=== PATIENT | male | born 1950 | race Caucasian/White ===

== ENCOUNTER → 2018-04-15 10:17 | Outpatient (CLI) | payer MEDICARE, OTHER, SELFPAY ==
[2018-04-15 12:50] LABS: Thyroid Stimulating Hormone 1.89 uIU/mL (0.47-4.68)
[2018-04-15 15:12] LABS: Prostate Specific Antigen < 0.064 ng/mL (0.10-4.00)
[2018-04-17 19:54] LABS: PSA Post Prostatectomy <0.02 ng/mL
== END ==
PROVIDERS: PCP Family Medicine; Visit Provider Urology
DX: Z85.46 Personal history of malignant neoplasm of prostate (principal); N52.9 Male erectile dysfunction, unspecified; N39.3 Stress incontinence (female) (male); R35.1 Nocturia; Z90.79 Acquired absence of other genital organ(s); E03.9 Hypothyroidism, unspecified
CPT/HCPCS: 36415; 84153; 84443

== ENCOUNTER → 2018-04-23 10:16 | Outpatient (CLI) | payer MEDICARE, OTHER, SELFPAY ==
[2018-04-23 11:40] LABS: Cholesterol 203 mg/dL (140-199); Glucose 94 mg/dL (80-110); HDL Cholesterol 45 mg/dL (40-60); LDL Cholesterol Calculated 141 mg/dL (<100); Triglycerides 85 mg/dL (35-150)
== END ==
PROVIDERS: Family Provider Family Medicine; PCP Family Medicine; Visit Provider Family Medicine
DX: Z00.00 Encounter for general adult medical examination without abnormal findings (principal)
CPT/HCPCS: 36415; 80061; 82947

== ENCOUNTER → 2018-08-31 10:59 | Outpatient (CLI) | payer MEDICARE, OTHER, SELFPAY ==
[2018-09-02 15:04] LABS: PSA Post Prostatectomy <0.02 ng/mL
== END ==
PROVIDERS: Family Provider Family Medicine; PCP Family Medicine; Visit Provider Urology
DX: C61 Malignant neoplasm of prostate (principal)
CPT/HCPCS: 36415; 84153

== ENCOUNTER 2019-04-05 15:18 | Emergency (ER) | payer MEDICARE, OTHER, SELFPAY ==
[2019-04-05 15:27] VITALS: BP 168/83; PULSE 65; RESP 12; TEMP 36.8; O2SAT 99; BMI 27.1
--- NOTE | 2019-04-05 15:30 | DI.RAD.S_ITS ---
PROCEDURE: XR CHEST 1V INDICATIONS: chest pain TECHNIQUE: One view of the chest was acquired. COMPARISON: [facility], CR, XR CHEST 1 VIEW, 04/01/2019, 4:02. FINDINGS: Surgical changes and devices: None. Lungs and pleura: Lungs are clear. No pleural effusions or pneumothorax. Mediastinum: Mediastinal contours appear normal. Heart size is normal. Bones and chest wall: No suspicious bony lesions. Overlying soft tissues appear unremarkable. IMPRESSION: No acute cardiopulmonary disease process. Dictated by: Roya Berg MD, PhD on 04/05/2019 at 15:40 Approved by: Roya Berg MD, PhD on 04/05/2019 at 15:41
[2019-04-05] MEDS: ASPIRIN 81 MG TAB 324 MG PO (15:39)
[2019-04-05] MEDS: SODIUM CHLORIDE 0.9% 1,000 ML 150 ML IV (15:39)
[2019-04-05 15:41] LABS: Add Manual Diff / Slide Review NO; Basophils Absolute Auto 0 /uL (0-100); Basophils Percent Auto 0.3 % (0-2); Eosinophils Absolute Auto 100 /uL (0-450); Eosinophils Percent Auto 1.5 % (2-4); Hematocrit 30.6 % (41-53); Hemoglobin 10.3 g/dL (13.5-17.5); Lymphocytes Absolute Auto 2000 /uL (1100-4500); Lymphocytes Percent Auto 21.5 % (25-40); Mean Corpuscular HGB Conc 33.6 % (30-36); Mean Corpuscular Hemoglobin 30.6 PG (26-34); Monocytes Absolute Auto 900 /uL (0-900); Monocytes Percent Auto 9.6 % (3-14); Neutrophils Absolute Auto 6100 /uL (1500-7000); Neutrophils Percent Auto 67.1 % (50-75); Platelet Count 197 X10^3/uL (150-400); Red Blood Cell Count 3.36 X10^6/uL (4.5-5.9); Red Cell Distribution Width 13.5 % (11.6-14.8); White Blood Cell Count 9.2 X10^3/uL (4.5-11.0)
[2019-04-05 15:53] LABS: Alanine Aminotransferase 72 IU/L (21-72); Albumin 3.8 g/dL (3.5-5.0); Albumin Globulin Ratio 1.4 (1.0-2.8); Alkaline Phosphatase 86 U/L (38-126); Aspartate Aminotransferase 48 IU/L (17-59); Bilirubin Total 0.7 mg/dL (0.2-1.3); Blood Urea Nitrogen 24 mg/dL (9-20); Calcium 9.1 mg/dL (8.4-10.2); Carbon Dioxide 30 mmol/L (22-32); Chloride 99 mmol/L (98-107); Creatine Kinase 37 U/L (55-170); Estimated Glomerular Filt Rate > 60.0 mL/min (>60); Globulin 2.7 g/dL (1.7-4.1); Glucose 104 mg/dL (80-110); HEMOLYSIS < 15 (0-50); Lipase 286 U/L (23-300); Potassium 3.6 mmol/L (3.4-5.1); Sodium 136 mmol/L (137-145); Total Protein 6.5 g/dL (6.3-8.2)
[2019-04-05 16:30] VITALS: BP 168/76; PULSE 61; RESP 12; O2SAT 99
--- NOTE | 2019-04-05 16:35 | ED.CHESTPAIN ---
HPI - Chest Pain General Chief Complaint: Chest Pain Stated Complaint: CHEST DISCOMFORT - RECENT UT Time Seen by Provider: 04/05/19 15:38 Source: patient Mode of arrival: ambulatory Limitations: no limitations History of Present Illness HPI narrative: Patient presents emergency department complaining of an episode of chest tightness and pressure today this started in the wee hours of the morning. He states that he did not have any associated symptoms--no shortness of breath, nausea, diaphoresis, or dizziness. The patient just had a STEMI 4 days ago, for which he was seen at [facility], and his right coronary artery was stented. 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 Patient states that his timber sizer, Dr. Puentes, stated that he felt that the left coronary artery stenosis had been there for quite some time, and that he did not feel it needed to be stented emergently. Patient states he was discharged 2 days ago, and has been doing fine, but is also on new medications and is not sure what to expect as far is symptoms. He states that his pain is completely gone now. Patient states that the discomfort that he had today felt much like his indigestion, but that he was concerned because the evening before his STEMI, he had the same kind of indigestion symptoms. He states they felt just like the same indigestion that he has had for years, but that this progressed into a much more severe pain along with diaphoresis. Patient states that none of this happened today. He states he has an appointment at the cardiology clinic tomorrow. Related Data Home Medications Medication Instructions Recorded Confirmed aspirin 81 mg PO DAILY 04/05/19 04/05/19 atorvastatin 40 mg PO QPM 04/05/19 04/05/19 clopidogrel 75 mg PO DAILY 04/05/19 04/05/19 losartan 100 mg PO DAILY 04/05/19 04/05/19 metoprolol tartrate 12.5 mg PO BID 04/05/19 04/05/19 Allergies Allergy/AdvReac Type Severity Reaction Status Date / Time shellfish derived Allergy Unknown Unverified 02/24/18 12:15 [SHELLFISH DERIVED] Review of Systems Constitutional Denies chills, Denies fever(s), Denies lethargy and Denies weakness Eyes Denies change in vision, Denies eye discharge, Denies irritation and Denies loss of vision ENT Ears, Nose, Mouth, and Throat: Denies change in voice, Denies neck pain and Denies sore throat Cardiovascular Reports chest pain, Denies irregular heart rhythm, Denies lightheadedness, Denies palpitations, Denies dyspnea, Denies dyspnea on exertion and Denies orthopnea Respiratory Denies cough, Denies dyspnea, Denies dyspnea on exertion and Denies wheezing Gastrointestinal Gastrointestinal: Denies abdominal pain, Denies change in bowel habits, Denies diarrhea, Denies nausea and Denies vomiting Genitourinary Denies hematuria, Denies flank pain, Denies urinary incontinence and Denies urinary urgency Musculoskeletal Denies neck pain Integumentary/Breasts Denies pruritus, Denies erythema, Denies rash and Denies wounds Neurologic Denies confusion, Denies loss of vision and Denies weakness Psychiatric Denies anxiety, Denies confusion, Denies depression, Denies homicidal ideation and Denies suicidal ideation Endocrine Denies palpitations Hematologic/Lymphatic Denies easy bruising Allergic/Immunologic Denies wheezing [facility] Medical History (Updated 04/05/19 @ 16:50 by Debbie Baum MD) STEMI (ST elevation myocardial infarction) (Resolved) Surgical History (Updated 04/05/19 @ 16:50 by Debbie Baum MD) H/O angioplasty (Acute) Family History Father Age: 93 Heart disease High cholesterol Mental health problem Stroke Mother Age: 90 Heart disease Hypertension High cholesterol Social History Smoking Status: Never smoker Family History Father Age: 93 Heart disease High cholesterol Mental health problem Stroke Mother Age: 90 Heart disease Hypertension High cholesterol Social History Smoking Status: Never smoker Exam Initial Vital Signs Initial Vital Signs: Vital Signs Temperature 98.3 F 04/05/19 15:27 Pulse Rate 65 04/05/19 15:27 Respiratory Rate 12 04/05/19 15:27 Blood Pressure 168/83 H 04/05/19 15:27 Pulse Oximetry 99 04/05/19 15:27 Const General: cooperative and well developed Nutritional Appearance: well nourished Orientation: alert, awake, oriented x3 and not confused [facility] Head: normocephalic and atraumatic Ears: TM's normal bilaterally Nose: external nose normal and No nasal discharge Face and sinus: face symmetric and No dry mucous membranes Mouth: oral mucosae normal and moist mucous membranes Teeth and gingiva: dentition normal Eyes General: appearance normal, both eyes and all related structures Eyelids: eyelids normal Conjunctivae: conjunctivae normal Sclera: sclerae normal Pupils: PERRL EOM: EOM intact bilaterally Neck Neck: normal visual inspection, trachea midline, No lymphadenopathy, No midline deformity and No JVD Lymphatic: No lymphedema Chest Chest: normal inspection of the chest Resp Effort & Inspection: normal respiratory effort, able to speak in complete sentences, no respiratory distress and no use of accessory muscles Auscultation: clear to auscultation bilaterally, no rales, no rhonchi and no wheezes Cardio Rate: regular rate Rhythm: regular rhythm Heart Sounds: no click, no gallops, no murmurs and no rubs Pulses: normal peripheral pulses GI Inspection: non-distended Palpation: soft, no hepatosplenomegaly, No guarding, No pulsatile mass and No tender Auscultation: normal bowel sounds Back/Spine/Pelvis Back: No CVA tenderness Cervical Spine: cervical ROM normal and No pain with cervical ROM Thoracic/Lumbar Spine: thoracic and lumbar spine normal to inspection Skin General: no rashes or lesions noted, No jaundice and No petechiae Neuro General: alert, oriented x3, gait normal and no focal motor deficits Speech: speech normal Extrem General: full ROM, no clubbing, cyanosis or edema, no pedal edema and no calf tenderness Other: Patient has extensive contusion with old hematoma over his right inguinal area, with dependent spread. No pulsatile mass or fluctuance is noted. No oozing from the catheter insertion site. Psych Appearance: well kempt Mental Status: mental status grossly normal Attitude: cooperative Thought Content: normal and suicidality Judgment: judgment good Course Course Narrative: Patient was worked up with labs and EKG, and initial workup was negative. Patient was chest pain-free at the time of his presentation to the emergency department. I reviewed the patient's records from [facility] and discussed the case with Dr. Dickey, who was on-call for Cardiology. He stated that he did not feel the patient should be sent home, but transferred to [facility] and have a repeat catheterization tomorrow morning. We did call scheduled to set up a bed for the patient, but they stated that they were full, and boarding multiple patients in the emergency department, and could not accept the patient in transfer. At this point, I did call [facility] in [place] and spoke with Dr. Stoll, who was on hospitalist duty. He stated that he would be happy to accept the patient, but requested that I speak with Dr. Kirk, the timber sizer, first. I did speak with Dr. Kirk, who, after a discussion of the circumstances surrounding the request for transfer, did agree to have the patient transferred to their hospitalist service at [facility], and stated that one of the cardiologists could see the patient tomorrow. I discussed all this with the patient and his , who were agreeable to the plan. Repeat troponin is pending at this time. The patient has remained chest pain free throughout his stay in the emergency department. Orders Ordered: ED Orders 04/05/19 15:30 XR chest 1V Stat EKG-12 Lead Stat 04/05/19 15:35 Complete Blood Count AUTO DIFF Stat Comprehensive Metabolic Panel Stat Lipase Stat Troponin & CK Cardiac Panel Stat 04/05/19 20:05 Troponin & CK Cardiac Panel Stat Sodium Chloride (Normal Saline 0.9%) 1,000 mls @ 150 mls/hr IV CONT KERVIN Last Admin: 04/05/19 15:39 Dose: 150 mls/hr Discontinued Medications Aspirin (Aspirin Chew) 324 mg PO NOW ONE Stop: 04/05/19 15:31 Last Admin: 04/05/19 15:39 Dose: 243 mg Vital Signs - 8 hr 04/05/19 15:27 04/05/19 16:30 04/05/19 17:00 Temperature 98.3 F Pulse Rate 65 61 56 L Respiratory Rate 12 12 12 Blood Pressure 168/83 H Blood Pressure [Right Arm] 168/76 H 134/78 Pulse Oximetry 99 99 98 04/05/19 18:00 04/05/19 19:36 Temperature Pulse Rate 59 L 56 L Respiratory Rate 17 15 Blood Pressure Blood Pressure [Right Arm] 141/74 H 142/92 H Pulse Oximetry 99 98 MDM - Chest Pain Medical Records Data Attestation: I reviewed the patient's medical records. Lab Data Attestation: I reviewed the patient's lab results. Result diagrams: 04/05/19 15:35 04/05/19 15:35 Lab Results 04/05/19 04/05/19 Range/Units 15:35 15:35 WBC 9.2 (4.5-11.0) X10^3/uL RBC 3.36 L (4.5-5.9) X10^6/uL Hgb 10.3 L (13.5-17.5) g/dL Hct 30.6 L (41-53) % MCV 91.0 (80-100) fL MCH 30.6 (26-34) PG MCHC 33.6 (30-36) % RDW 13.5 (11.6-14.8) % Plt Count 197 (150-400) X10^3/uL Neut % (Auto) 67.1 (50-75) % Lymph % (Auto) 21.5 L (25-40) % [place] % (Auto) 9.6 (3-14) % Eos % (Auto) 1.5 L (2-4) % Baso % (Auto) 0.3 (0-2) % Neut # (Auto) 6100 (6724-6284) /uL Lymph # (Auto) 2000 (6512-0185) /uL [place] # (Auto) 900 (0-900) /uL Eos # (Auto) 100 (0-450) /uL Baso # (Auto) 0 (0-100) /uL Sodium 136 L (137-145) mmol/L Potassium 3.6 (3.4-5.1) mmol/L Chloride 99 (98-107) mmol/L Carbon Dioxide 30 (22-32) mmol/L BUN 24 H (9-20) mg/dL Creatinine 1.00 (0.66-1.25) mg/dL Estimated GFR > 60.0 (>60) mL/min BUN/Creatinine Ratio 24.0 H (6-22) Glucose 104 (80-110) mg/dL Calcium 9.1 (8.4-10.2) mg/dL Total Bilirubin 0.7 (0.2-1.3) mg/dL AST 48 (17-59) IU/L ALT 72 (21-72) IU/L Alkaline Phosphatase 86 (38-126) U/L Total Creatine Kinase 37 L (55-170) U/L CK-MB (CK-2) TNP CK-MB (CK-2) Rel Index TNP Troponin I 5.150 H* (0.01-0.034) ng/mL Total Protein 6.5 (6.3-8.2) g/dL Albumin 3.8 (3.5-5.0) g/dL Globulin 2.7 (1.7-4.1) g/dL Albumin/Globulin Ratio 1.4 (1.0-2.8) Lipase 286 (23-300) U/L Imaging Data Chest x-ray: Radiologist's impression: [address] [address] XRay Report Signed Patient: Flaco Brown FMR#: [id number] : 1950Acct:[id number] Age/Sex: 68 / MDate of Service: 04/05/19 Loc: ED Accession Number: [id number] Procedure: XR chest 1V Ordering Provider: Debbie Baum MD PROCEDURE: XR CHEST 1V INDICATIONS: chest pain TECHNIQUE: One view of the chest was acquired. COMPARISON: [facility], , XR CHEST 1 VIEW, 04/01/2019, 4:02. FINDINGS: Surgical changes and devices: None. Lungs and pleura: Lungs are clear. No pleural effusions or pneumothorax. Mediastinum: Mediastinal contours appear normal. Heart size is normal. Bones and chest wall: No suspicious bony lesions. Overlying soft tissues appear unremarkable. IMPRESSION: No acute cardiopulmonary disease process. Dictated by: Roya Berg MD, PhD on 04/05/2019 at 15:40 Approved by: Roya Berg MD, PhD on 04/05/2019 at 15:41 ECG Data Attestation: I personally reviewed and interpreted this ECG as follows: (See below) Interpretation: Twelve lead EKG performed April 05, 2019 at 3:24 p.m., as follows: Regular ventricular rhythm with a rate of 63 beats per minute [place] interval 161 milliseconds QRS duration 102 millisecond QTC interval 414 millisecond Normal axis Inverted T-waves in leads 3 and AVF Q-waves present in leads 2, 3 and AVF Interpretation: Normal sinus rhythm; no STEMI; inferior myocardial infarction of indeterminate age; abnormal EKG is interpreted by ED MD. Discharge Plan Departure Prescriptions: No Action atorvastatin 40 mg Tablet 40 mg PO QPM RF: 0 clopidogrel 75 mg Tablet 75 mg PO DAILY RF: 0 aspirin 81 mg Tablet,Delayed Release (Dr/Ec) 81 mg PO DAILY RF: 0 losartan 100 mg Tablet 100 mg PO DAILY RF: 0 metoprolol tartrate 25 mg Tablet 12.5 mg PO BID RF: 0
--- NOTE | 2019-04-05 16:42 | ED_ITS ---
HPI - Chest Pain General Chief Complaint: Chest Pain Stated Complaint: CHEST DISCOMFORT - RECENT [place] Time Seen by Provider: 04/05/19 15:38 Source: patient Mode of arrival: ambulatory Limitations: no limitations History of Present Illness HPI narrative: Patient presents emergency department complaining of an episode o f chest tightness and pressure today this started in the wee hours of the morning. He states that he did not have any associated symptoms--no shortness of breath, nausea, diaphoresis, or dizziness. The patient just had a STEMI 4 days ago, for which he was seen at [facility], and his right coronary artery was stented. 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 Patient states that his airport maintenance laborer, Dr. Puentes, stated that he felt that the left coronary artery stenosis had been there for quite some time, and that he did not feel it needed to be stented emergently. Patient states he was discharged 2 days ago, and has been doing fine, but is also on new medications and is not sure what to expect as far is symptoms. He states that his pain is completely gone now. Patient states that the discomfort that he had today felt much like his indigestion, but that he was concerned because the evening before his STEMI, he had the same kind of indigestion symptoms. He states they felt just like the same indigestion that he has had for years, but that this progressed into a much more severe pain along with diaphoresis. Patient states that none of this happened today. He states he has an appointment at the cardiology clinic tomorrow. Related Data Home Medications Medication Instructions Recorded Confirmed aspirin 81 mg PO DAILY 04/05/19 04/05/19 atorvastatin 40 mg PO QPM 04/05/19 04/05/19 clopidogrel 75 mg PO DAILY 04/05/19 04/05/19 losartan 100 mg PO DAILY 04/05/19 04/05/19 metoprolol tartrate 12.5 mg PO BID 04/05/19 04/05/19 Allergies Allergy/AdvReac Type Severity Reaction Status Date / Time shellfish derived Allergy Unknown Unverified 02/24/18 12:15 [SHELLFISH DERIVED] Review of Systems Constitutional Denies chills, Denies fever(s), Denies lethargy and Denies weakness Eyes Denies change in vision, Denies eye discharge, Denies irritation and Denies loss of vision ENT Ears, Nose, Mouth, and Throat: Denies change in voice, Denies neck pain and Denies sore throat Cardiovascular Reports chest pain, Denies irregular heart rhythm, Denies lightheadedness, Denies palpitations, Denies dyspnea, Denies dyspnea on exertion and Denies orthopnea Respiratory Denies cough, Denies dyspnea, Denies dyspnea on exertion and Denies wheezing Gastrointestinal Gastrointestinal: Denies abdominal pain, Denies change in bowel habits, Denies diarrhea, Denies nausea and Denies vomiting Genitourinary Denies hematuria, Denies flank pain, Denies urinary incontinence and Denies urinary urgency Musculoskeletal Denies neck pain Integumentary/Breasts Denies pruritus, Denies erythema, Denies rash and Denies wounds Neurologic Denies confusion, Denies loss of vision and Denies weakness Psychiatric Denies anxiety, Denies confusion, Denies depression, Denies homicidal ideation and Denies suicidal ideation Endocrine Denies palpitations Hematologic/Lymphatic Denies easy bruising Allergic/Immunologic Denies wheezing [facility] Medical History (Updated 04/05/19 @ 16:50 by Debbie Baum MD) STEMI (ST elevation myocardial infarction) (Resolved) Surgical History (Updated 04/05/19 @ 16:50 by Debbie Baum MD) H/O angioplasty (Acute) Family History Father Age: 93 Heart disease High cholesterol Mental health problem Stroke Mother Age: 90 Heart disease Hypertension High cholesterol Social History Smoking Status: Never smoker Family History Father Age: 93 Heart disease High cholesterol Mental health problem Stroke Mother Age: 90 Heart disease Hypertension High cholesterol Social History Smoking Status: Never smoker Exam Initial Vital Signs Initial Vital Signs: Vital Signs Temperature 98.3 F 04/05/19 15:27 Pulse Rate 65 04/05/19 15:27 Respiratory Rate 12 04/05/19 15:27 Blood Pressure 168/83 H 04/05/19 15:27 Pulse Oximetry 99 04/05/19 15:27 Const General: cooperative and well developed Nutritional Appearance: well nourished Orientation: alert, awake, oriented x3 and not confused [facility] Head: normocephalic and atraumatic Ears: TM's normal bilaterally Nose: external nose normal and No nasal discharge Face and sinus: face symmetric and No dry mucous membranes Mouth: oral mucosae normal and moist mucous membranes Teeth and gingiva: dentition normal Eyes General: appearance normal, both eyes and all related structures Eyelids: eyelids normal Conjunctivae: conjunctivae normal Sclera: sclerae normal Pupils: PERRL EOM: EOM intact bilaterally Neck Neck: normal visual inspection, trachea midline, No lymphadenopathy, No midline deformity and No JVD Lymphatic: No lymphedema Chest Chest: normal inspection of the chest Resp Effort & Inspection: normal respiratory effort, able to speak in complete sentences, no respiratory distress and no use of accessory muscles Auscultation: clear to auscultation bilaterally, no rales, no rhonchi and no wheezes Cardio Rate: regular rate Rhythm: regular rhythm Heart Sounds: no click, no gallops, no murmurs and no rubs Pulses: normal peripheral pulses GI Inspection: non-distended Palpation: soft, no hepatosplenomegaly, No guarding, No pulsatile mass and No tender Auscultation: normal bowel sounds Back/Spine/Pelvis Back: No CVA tenderness Cervical Spine: cervical ROM normal and No pain with cervical ROM Thoracic/Lumbar Spine: thoracic and lumbar spine normal to inspection Skin General: no rashes or lesions noted, No jaundice and No petechiae Neuro General: alert, oriented x3, gait normal and no focal motor deficits Speech: speech normal Extrem General: full ROM, no clubbing, cyanosis or edema, no pedal edema and no calf tenderness Other: Patient has extensive contusion with old hematoma over his right inguinal area, with dependent spread. No pulsatile mass or fluctuance is noted. No oozing from the catheter insertion site. Psych Appearance: well kempt Mental Status: mental status grossly normal Attitude: cooperative Thought Content: normal and suicidality Judgment: judgment good Course Course Narrative: Patient was worked up with labs and EKG, and initial workup was negative. Patient was chest pain-free at the time of his presentation to the emergency department. I reviewed the patient's records from [facility] and disc ussed the case with Dr. Dickey, who was on-call for Cardiology. He stated that he did not feel the patient should be sent home, but transferred to [facility] and have a repeat catheterization tomorrow morning. We did call scheduled to set up a bed for the patient, but they stated that they were full, and boarding multiple patients in the emergency department, and could not accept the patient in transfer. At this point, I did call [facility] in [place] and spoke with Dr. Stoll, who was on hospitalist duty. He stated that he would be happy to accept the patient, but requested that I speak with Dr. Kirk, the airport maintenance laborer, first. I did speak with Dr. Kirk, who, after a discussion of the circumstances surrounding the request for transfer, did agree to have the patient transferred to their hospitalist service at [facility], and stated that one of the cardiologists could see the patient tomorrow. I discussed all this with the patient and his , who were agreeable to the plan. Repeat troponin is pending at this time. The patient has remained chest pain free throughout his stay in the emergency department. Orders Ordered: ED Orders 04/05/19 15:30 XR chest 1V Stat EKG-12 Lead Stat 04/05/19 15:35 Complete Blood Count AUTO DIFF Stat Comprehensive Metabolic Panel Stat Lipase Stat Troponin & CK Cardiac Panel Stat 04/05/19 20:05 Troponin & CK Cardiac Panel Stat Sodium Chloride (Normal Saline 0.9%) 1,000 mls @ 150 mls/hr IV CONT KERVIN Last Admin: 04/05/19 15:39 Dose: 150 mls/hr Discontinued Medications Aspirin (Aspirin Chew) 324 mg PO NOW ONE Stop: 04/05/19 15:31 Last Admin: 04/05/19 15:39 Dose: 243 mg Vital Signs - 8 hr 04/05/19 15:27 04/05/19 16:30 04/05/19 17:00 Temperature 98.3 F Pulse Rate 65 61 56 L Respiratory Rate 12 12 12 Blood Pressure 168/83 H Blood Pressure [Right Arm] 168/76 H 134/78 Pulse Oximetry 99 99 98 04/05/19 18:00 04/05/19 19:36 Temperature Pulse Rate 59 L 56 L Respiratory Rate 17 15 Blood Pressure Blood Pressure [Right Arm] 141/74 H 142/92 H Pulse Oximetry 99 98 MDM - Chest Pain Medical Records Data Attestation: I reviewed the patient's medical records. Lab Data Attestation: I reviewed the patient's lab results. Result diagrams: 04/05/19 15:35 04/05/19 15:35 Lab Results 04/05/19 04/05/19 Range/Units 15:35 15:35 WBC 9.2 (4.5-11.0) X10^3/uL RBC 3.36 L (4.5-5.9) X10^6/uL Hgb 10.3 L (13.5-17.5) g/dL Hct 30.6 L (41-53) % MCV 91.0 (80-100) fL MCH 30.6 (26-34) PG MCHC 33.6 (30-36) % RDW 13.5 (11.6-14.8) % Plt Count 197 (150-400) X10^3/uL Neut % (Auto) 67.1 (50-75) % Lymph % (Auto) 21.5 L (25-40) % Villalba % (Auto) 9.6 (3-14) % Eos % (Auto) 1.5 L (2-4) % Baso % (Auto) 0.3 (0-2) % Neut # (Auto) 6100 (4017-1714) /uL Lymph # (Auto) 2000 (9764-2455) /uL Villalba # (Auto) 900 (0-900) /uL Eos # (Auto) 100 (0-450) /uL Baso # (Auto) 0 (0-100) /uL Sodium 136 L (137-145) mmol/L Potassium 3.6 (3.4-5.1) mmol/L Chloride 99 (98-107) mmol/L Carbon Dioxide 30 (22-32) mmol/L BUN 24 H (9-20) mg/dL Creatinine 1.00 (0.66-1.25) mg/dL Estimated GFR > 60.0 (>60) mL/min BUN/Creatinine Ratio 24.0 H (6-22) Glucose 104 (80-110) mg/dL Calcium 9.1 (8.4-10.2) mg/dL Total Bilirubin 0.7 (0.2-1.3) mg/dL AST 48 (17-59) IU/L ALT 72 (21-72) IU/L Alkaline Phosphatase 86 (38-126) U/L Total Creatine Kinase 37 L (55-170) U/L CK-MB (CK-2) TNP CK-MB (CK-2) Rel Index TNP Troponin I 5.150 H* (0.01-0.034) ng/mL Total Protein 6.5 (6.3-8.2) g/dL Albumin 3.8 (3.5-5.0) g/dL Globulin 2.7 (1.7-4.1) g/dL Albumin/Globulin Ratio 1.4 (1.0-2.8) Lipase 286 (23-300) U/L Imaging Data Chest x-ray: Radiologist's impression: [address] [address] XRay Report Signed Patient: Flaco Brown FMR#: [id number] : 1950Acct:[id number] Age/Sex: 68 / MDate of Service: 04/05/19 Loc: ED Accession Number: [id number] Procedure: XR chest 1V Ordering Provider: Debbie Baum MD PROCEDURE: XR CHEST 1V INDICATIONS: chest pain TECHNIQUE: One view of the chest was acquired. COMPARISON: [facility], , XR CHEST 1 VIEW, 04/01/2019, 4:02. FINDINGS: Surgical changes and devices: None. Lungs and pleura: Lungs are clear. No pleural effusions or pneumothorax. Mediastinum: Mediastinal contours appear normal. Heart size is normal. Bones and chest wall: No suspicious bony lesions. Overlying soft tissues appear unremarkable. IMPRESSION: No acute cardiopulmonary disease process. Dictated by: Roya Berg MD, PhD on 04/05/2019 at 15:40 Approved by: Roya Berg MD, PhD on 04/05/2019 at 15:41 ECG Data Attestation: I personally reviewed and interpreted this ECG as follows: (See below) Interpretation: Twelve lead EKG performed April 05, 2019 at 3:24 p.m., as follows: Regular ventricular rhythm with a rate of 63 beats per minute AR interval 161 milliseconds QRS duration 102 millisecond QTC interval 414 millisecond Normal axis Inverted T-waves in leads 3 and AVF Q-waves present in leads 2, 3 and AVF Interpretation: Normal sinus rhythm; no STEMI; inferior myocardial infarction of indeterminate age; abnormal EKG is interpreted by ED MD. Discharge Plan Departure Prescriptions: No Action atorvastatin 40 mg Tablet 40 mg PO QPM RF: 0 clopidogrel 75 mg Tablet 75 mg PO DAILY RF: 0 aspirin 81 mg Tablet,Delayed Release (Dr/Ec) 81 mg PO DAILY RF: 0 losartan 100 mg Tablet 100 mg PO DAILY RF: 0 metoprolol tartrate 25 mg Tablet 12.5 mg PO BID RF: 0
[2019-04-05 17:00] VITALS: BP 134/78; PULSE 56; RESP 12; O2SAT 98
[2019-04-05 18:00] VITALS: BP 141/74; PULSE 59; RESP 17; O2SAT 99
[2019-04-05 19:36] VITALS: BP 142/92; PULSE 56; RESP 15; O2SAT 98
[2019-04-05 20:23] LABS: Creatine Kinase 34 U/L (55-170)
== END 2019-04-05 21:23 | disposition short-term general hospital (02) ==
PROVIDERS: Emergency Provider Emergency Medicine; Family Provider Family Medicine; PCP Family Medicine
DX: R07.89 Other chest pain (principal); Z98.62 Peripheral vascular angioplasty status; Z95.818 Presence of other cardiac implants and grafts
CPT/HCPCS: 36415; 36591; 71045; 80053; 82550; 83690; 84484; 85025; 93005; 93010; 96360; 96361; 99283; 99285

== ENCOUNTER → 2019-05-02 09:41 | Outpatient (CLI) | payer MEDICARE, OTHER, SELFPAY ==
[2019-05-02 11:14] LABS: BUN Creatinine Ratio 24.4 (6-22); Blood Urea Nitrogen 22 mg/dL (9-20); Calcium 8.9 mg/dL (8.4-10.2); Carbon Dioxide 31 mmol/L (22-32); Chloride 103 mmol/L (98-107); Estimated Glomerular Filt Rate > 60.0 mL/min (>60); Glucose 88 mg/dL (80-110); HEMOLYSIS < 15 (0-50); Sodium 141 mmol/L (137-145)
== END ==
PROVIDERS: Family Provider Family Medicine; PCP Family Medicine; Visit Provider Nurse Practitioner
DX: I10 Essential (primary) hypertension (principal)
CPT/HCPCS: 36415; 80048

== ENCOUNTER → 2019-05-05 07:11 | Outpatient (CLI) | payer MEDICARE, OTHER, SELFPAY ==
--- NOTE | 2019-05-05 07:14 | DI.US.S_ITS ---
PROCEDURE: US ABDOMEN COMPLETE INDICATIONS: UNSPECIFIED ABDOMINAL PAIN TECHNIQUE: Real-time scanning was performed of the abdominal and retroperitoneal organs, with image documentation. COMPARISON: None. FINDINGS: Liver: Liver is normal in size and homogeneous in echotexture. Gallbladder: There is no cholelithiasis or evidence of gallbladder wall inflammation. Biliary ducts: Intrahepatic bile ducts are non-dilated. Extrahepatic bile duct caliber measures 6 mm. Normal is 6-7 mm or less in diameter, or 10 mm or less post-cholecystectomy. Pancreas: Obscured by bowel gas. Spleen: Spleen is normal in size and homogeneous in echotexture. Kidneys: Kidneys are normal in size and echotexture. Right kidney measures 11.9 cm long; left kidney measures 11.5 cm long. No hydronephrosis or shadowing nephrolithiasis. No solid masses. A simple superior left renal cyst is present measuring up to 1.2 cm. Aorta: Visualized aorta is normal in caliber at less than 3 cm. Iliacs: Proximal common iliac arteries are normal in caliber at less than 2.5 cm. IVC: Intrahepatic inferior vena cava is patent. Miscellaneous: No free abdominal fluid. IMPRESSION: 1. No cholelithiasis or evidence of acute cholecystitis. 2. No definite nephrolithiasis or hydronephrosis. Dictated by: Blayne Jaime M.D. on 05/05/2019 at 9:01 Approved by: Blayne Jaime M.D. on 05/05/2019 at 9:02
[2019-05-05 08:22] LABS: Amylase 111 U/L (30-110); Lipase 357 U/L (23-300)
== END ==
PROVIDERS: Family Provider Family Medicine; PCP Family Medicine; Visit Provider Internal Medicine
DX: R10.9 Unspecified abdominal pain (principal); N28.1 Cyst of kidney, acquired
CPT/HCPCS: 36415; 76700; 82150; 83690

== ENCOUNTER → 2019-05-11 10:03 | Outpatient (CLI) | payer MEDICARE, OTHER, SELFPAY ==
--- NOTE | 2019-05-11 | DI.CT.S_ITS ---
PROCEDURE: CT ABDOMEN WO/W CON INDICATIONS: Acute pancreatitis without necrosis or infection, TECHNIQUE: Noncontrast 3 mm thick sections acquired through the pancreas. After the administration of intravenous contrast, 3 mm thick pancreatic-phase images acquired from the diaphragm to the iliac crests. 3 mm thick coronal and sagittal reformats were performed. For radiation dose reduction, the following was used: automated exposure control, adjustment of mA and/or kV according to patient size. COMPARISON: None. FINDINGS: Image quality: Excellent. Lung bases: Lung bases are clear. Heart size is normal. There is a small pericardial effusion. Pancreas: The pancreas is normal size, normal and uniform in enhancement, and there is no peripancreatic inflammatory changes. The pancreatic duct is nondilated. No calcifications on precontrast imaging. Other solid organs: Liver is normal in size and enhancement. Gallbladder appears normal. Biliary system is non dilated. Spleen is normal in size and enhancement. No adrenal nodules. Kidneys are normal in size and enhancement, without hydronephrosis. There are a few cortical cysts present in each kidney. Peritoneum and bowel: Unenhanced bowel loops demonstrate normal wall thickness and caliber. No free fluid or air. Nodes and vessels: No retroperitoneal or mesenteric adenopathy by size criteria. Aorta and inferior vena cava are normal in size. Bones: No suspicious bony lesions. No vertebral body compression fractures. Miscellaneous: No ventral hernias. IMPRESSION: 1. Normal CT appearance of the pancreas. Correlation with lipase and amylase is recommended as a very mild pancreatitis may be occult by CT. 2. Small bilateral renal cysts. 3. Small pericardial effusion. Dictated by: Jamila Garcia M.D. on 05/11/2019 at 15:38 Approved by: Jamila Garcia M.D. on 05/11/2019 at 15:45
== END ==
PROVIDERS: Family Provider Family Medicine; PCP Family Medicine; Visit Provider Internal Medicine
DX: K85.90 Acute pancreatitis without necrosis or infection, unspecified (principal); N28.1 Cyst of kidney, acquired; I31.3 Pericardial effusion (noninflammatory)
CPT/HCPCS: 74170; Q9967

== ENCOUNTER 2019-08-11 08:30 | Outpatient (RCR) | payer MEDICARE, OTHER, SELFPAY | END 2019-08-12 11:26 | LOC: CAR 08:30 | PROVIDERS: Family Provider Family Medicine; PCP Family Medicine; Visit Provider Family Medicine | DX: Z95.5 Presence of coronary angioplasty implant and graft (principal) | CPT/HCPCS: 93798 ==

== ENCOUNTER → 2019-09-20 09:23 | Outpatient (CLI) | payer MEDICARE, OTHER, SELFPAY ==
[2019-09-20 11:38] LABS: Prostate Specific Antigen < 0.064 ng/mL (0.10-4.00)
== END ==
PROVIDERS: PCP Internal Medicine; Visit Provider Urology
DX: Z85.46 Personal history of malignant neoplasm of prostate (principal); Z90.79 Acquired absence of other genital organ(s)
CPT/HCPCS: 36415; 84153

== ENCOUNTER → 2020-03-30 10:12 | Outpatient (CLI) | payer MEDICARE, OTHER, SELFPAY ==
[2020-03-30 11:21] LABS: BUN Creatinine Ratio 21.9 (6-22); Blood Urea Nitrogen 21 mg/dL (9-20); Calcium 9.4 mg/dL (8.4-10.2); Carbon Dioxide 29 mmol/L (22-32); Chloride 101 mmol/L (98-107); Estimated Glomerular Filt Rate > 60.0 mL/min (>60); Glucose 113 mg/dL (80-110); HEMOLYSIS < 15 (0-50); Potassium 3.9 mmol/L (3.4-5.1); Sodium 138 mmol/L (137-145)
== END ==
PROVIDERS: PCP Internal Medicine; Referring Provider Internal Medicine; Visit Provider Internal Medicine
DX: I10 Essential (primary) hypertension (principal)
CPT/HCPCS: 36415; 80048

== ENCOUNTER → 2020-04-19 07:57 | Outpatient (CLI) | payer MEDICARE, OTHER, SELFPAY ==
[2020-04-19 08:47] LABS: Hemoglobin A1C% w Est Avg Glu 5.1 % (4.0-6.0)
[2020-04-19 08:53] LABS: Cholesterol 125 mg/dL (140-199); HDL Cholesterol 51 mg/dL (40-60); LDL Cholesterol Calculated 62 mg/dL (<100); Triglycerides 62 mg/dL (35-150)
== END ==
PROVIDERS: PCP Internal Medicine; Referring Provider Internal Medicine; Visit Provider Internal Medicine
DX: R73.09 Other abnormal glucose (principal); E78.5 Hyperlipidemia, unspecified
CPT/HCPCS: 36415; 80061; 83036

== ENCOUNTER → 2020-12-18 09:04 | Outpatient (CLI) | payer MEDICARE, OTHER, SELFPAY ==
[2020-12-18 10:36] LABS: Alanine Aminotransferase 27 IU/L (<50); Albumin 3.9 g/dL (3.5-5.0); Albumin Globulin Ratio 1.5 (1.0-2.8); Alkaline Phosphatase 73 U/L (38-126); Aspartate Aminotransferase 24 IU/L (17-59); BUN Creatinine Ratio 20.9 (6-22); Bilirubin Total 0.5 mg/dL (0.2-1.3); Blood Urea Nitrogen 23 mg/dL (9-20); Calcium 8.8 mg/dL (8.4-10.2); Carbon Dioxide 31 mmol/L (22-32); Chloride 104 mmol/L (98-107); Cholesterol 111 mg/dL (140-199); Estimated Glomerular Filt Rate > 60.0 mL/min (>60); Globulin 2.6 g/dL (1.7-4.1); Glucose 94 mg/dL (80-110); HDL Cholesterol 45 mg/dL (40-60); HEMOLYSIS < 15 (0-50); LDL Cholesterol Calculated 51 mg/dL (<100); Potassium 3.3 mmol/L (3.4-5.1); Sodium 138 mmol/L (137-145); Total Protein 6.5 g/dL (6.3-8.2); Triglycerides 77 mg/dL (35-150)
[2020-12-18 11:07] LABS: Prostate Specific Antigen < 0.064 ng/mL (0.10-4.00)
[2020-12-18 11:10] LABS: TSH w/ Reflex to FT4 3.41 uIU/mL (0.47-4.68)
== END ==
PROVIDERS: PCP Family Medicine; Referring Provider Urology; Visit Provider Urology
DX: E03.9 Hypothyroidism, unspecified (principal); Z85.46 Personal history of malignant neoplasm of prostate; I10 Essential (primary) hypertension; N18.2 Chronic kidney disease, stage 2 (mild); E78.5 Hyperlipidemia, unspecified
CPT/HCPCS: 36415; 80053; 80061; 84153; 84443

== ENCOUNTER → 2021-01-14 12:24 | Outpatient (CLI) | payer MEDICARE, OTHER, SELFPAY ==
--- NOTE | 2021-01-14 | DI.US.S_ITS ---
PROCEDURE: US SCROTUM INDICATIONS: Scrotal pain. Right testicle palpable abnormality although not reproducible at the time of the examination. TECHNIQUE: Real-time scanning was performed of the scrotum and testicles, with image documentation. Color and pulse Doppler interrogation was performed of both testicles. COMPARISON: None. FINDINGS: Right: Testicle is normal in size at 5.1 x 2.7 x 3.7 cm, and homogenous in echotexture. Epididymis is normal in overall size and morphology. No hydrocele or varicoceles. Overlying scrotal skin is normal in thickness. Left: Testicle is normal in size at 4.5 x 2.7 x 2.9 cm, and homogeneous in echotexture. Epididymis is normal in overall size and morphology. No hydrocele or varicoceles. Overlying scrotal skin is normal in thickness. Doppler: Color and pulse Doppler demonstrate normal and symmetric arterial flow in both testicles. IMPRESSION: Negative examination as above Dictated by: Cyrus Isaac M.D. on 01/14/2021 at 16:19 Approved by: Cyrus Isaac M.D. on 01/14/2021 at 16:20
== END ==
PROVIDERS: PCP Family Medicine; Referring Provider Urology; Visit Provider Urology
DX: N50.82 Scrotal pain (principal); N50.89 Other specified disorders of the male genital organs
CPT/HCPCS: 76870

== ENCOUNTER 2021-01-31 19:44 | Emergency (ER) | payer MEDICARE, OTHER, SELFPAY ==
[2021-01-31] VITALS (10 sets, daily range): BP systolic 148–176; BP diastolic 74–88; PULSE 53–68; RESP 12–21; TEMP 36.6; O2SAT 97–98; BMI 27.1
--- NOTE | 2021-01-31 19:58 | DI.RAD.S_ITS ---
PROCEDURE: XR CHEST 1V INDICATIONS: chest pain TECHNIQUE: One view of the chest was acquired. COMPARISON: [facility], CR, XR CHEST 1V, 04/05/2019, 15:34. FINDINGS: Surgical changes and devices: None. Lungs and pleura: Lungs are clear. No pleural effusions or pneumothorax. Mediastinum: Mediastinal contours appear unchanged. Heart size is normal. Bones and chest wall: No suspicious bony lesions. Overlying soft tissues appear unremarkable. IMPRESSION: 1. No acute cardiopulmonary disease. Dictated by: Jama Michael M.D. on 01/31/2021 at 20:52 Approved by: Jama Michael M.D. on 01/31/2021 at 20:53
--- NOTE | 2021-01-31 20:06 | ED.CHESTPAIN ---
HPI - Chest Pain General Chief Complaint: Chest Pain Stated Complaint: chest discomfort on and off for days Time Seen by Provider: 01/31/21 19:58 Source: patient Mode of arrival: Ambulatory Limitations: no limitations History of Present Illness HPI narrative: The patient had an NE March 2019, was transported to [facility] and went to the lab pack chemist for stented at time. After discharge he returned here with recurrence of pain, he went back to the lab pack chemist, 2 additional stents were placed. He has not had a stress test since these events occurred in 2018. Over the past 3 days he is experiencing intermittent periods of central sternal chest pain. Last episode happened about 30 minutes prior to arrival, he walked into his house from a shop and experienced 20 minutes of chest pain. The pain is not radiating, he has no dyspnea. Symptoms are compatible with discomfort experienced in 2018 prior to his initial heart attack. His compliant with medications for hypertension, hyperlipidemia, and he does take baby aspirin. He denies recent illness. The periods of pain or new. Over the last days the number of episodes is increasing, he is now experiencing pain with minimal exertion. He has no pain at rest. Related Data Home Medications Medication Instructions Recorded Confirmed aspirin 81 mg PO DAILY 04/05/19 08/03/20 amlodipine 10 mg tablet 10 mg PO DAILY 08/03/20 08/03/20 metoprolol tartrate 25 mg tablet 12.5 mg PO BEDTIME tab 08/06/20 08/06/20 Previous Rx's Medication Instructions Recorded losartan 100 mg tablet 100 mg PO DAILY #90 tab 08/06/20 metoprolol tartrate 25 mg tablet 12.5 mg PO BEDTIME #90 tab 08/06/20 atorvastatin 40 mg tablet 40 mg PO QPM #90 tab 10/05/20 Allergies Allergy/AdvReac Type Severity Reaction Status Date / Time shellfish derived Allergy Unknown Verified 01/31/21 19:49 [SHELLFISH DERIVED] Review of Systems Constitutional Constitutional: Denies body ache(s), Denies chills, Denies fatigue, Denies fever(s), Denies headache(s), Denies lethargy and Denies weakness Eyes Eyes: Denies change in vision ENT Ears, Nose, Mouth, and Throat: Denies vertigo, Denies headache(s) and Denies sore throat Cardiovascular Cardiovascular: Reports as per HPI and Denies dyspnea Respiratory Respiratory: Denies cough and Denies dyspnea Gastrointestinal Gastrointestinal: Denies abdominal pain, Denies nausea and Denies vomiting Genitourinary Genitourinary: Denies dysuria Genitourinary: Denies dysuria Musculoskeletal Comments: No lower extremity edema or calf tenderness Integumentary/Breasts Skin/Breast: Denies lesions and Denies rash Neurologic Neurologic: Denies confusion, Denies vertigo, Denies headache(s) and Denies weakness Psychiatric Psychiatric: Denies anxiety, Denies confusion and Denies panic attacks Endocrine Endocrine: Denies fatigue Patient History Medical History (Updated 02/01/21 @ 00:13 by Dorian Cordoba MD) Hyperlipidemia Hypertension STEMI (ST elevation myocardial infarction) Surgical History H/O angioplasty History of prostatectomy Family History Father Age: 95 Heart disease High cholesterol Mental health problem Stroke Mother Age: 92 Heart disease Hypertension High cholesterol Social History Smoking Status: Never smoker Smoking Status: Never smoker alcohol intake frequency: holidays/special occasions only Substance Use Type: does not use Exam Initial Vital Signs Initial Vital Signs: Vital Signs Temperature 97.9 F 01/31/21 19:49 Pulse Rate 63 01/31/21 19:49 Respiratory Rate 14 01/31/21 19:49 Blood Pressure 175/81 H 01/31/21 19:49 Pulse Oximetry 98 01/31/21 19:49 Const General: cooperative and well developed Nutritional Appearance: well nourished [facility] Head: normocephalic and atraumatic Mouth: oral mucosae normal Throat: posterior oropharynx normal Eyes General: appearance normal, both eyes and all related structures Eyelids: eyelids normal Conjunctivae: conjunctivae normal Sclera: sclerae normal Pupils: PERRL EOM: EOM intact bilaterally Neck Neck: No JVD Chest Chest: normal inspection of the chest Resp Auscultation: clear to auscultation bilaterally Cardio Rate: regular rate Rhythm: regular rhythm Heart Sounds: S1 normal, S2 normal, no click, no gallops, no murmurs and no rubs Pulses: normal peripheral pulses GI Palpation: soft and No tender Auscultation: normal bowel sounds Back/Spine/Pelvis Back: No back tenderness Skin General: no rashes or lesions noted Neuro General: patient alert, patient oriented x3, gait normal and no focal motor deficits Speech: speech normal Extrem General: full ROM, no pedal edema and no calf tenderness Psych Appearance: well kempt Mental Status: mental status grossly normal Attitude: cooperative Thought Content: normal Judgment: judgment good Course Course Course Narrative: The patient has known coronary disease, he is now experiencing intermittent episodes of chest pain over the past 3 days, consistent with his discomfort prior to experiencing NE in 2019. He initially experienced chest pain with exertion 3 days ago. He is now experiencing multiple episodes of chest pain during the day, was recently with nonstressfull walking. He has been asymptomatic since arrival, labs and EKG are benign. However the history is consistent with crescendo angina in gentleman with risk factors and known disease. I discussed the case with Cardiology, Dr. Traylor, at [facility]. He agrees with hospitalization, with follow-up stress test and/or catheterization. The case has been discussed also with the hospitalist,Dr Webster. She has accepted the patient for admission. He has been clinically stable throughout his ER stay, of to the point of transportation to [facility] Orders Ordered: ED Orders 01/31/21 19:58 XR chest 1V Stat EKG-12 Lead Stat 01/31/21 20:00 Complete Blood Count AUTO DIFF Stat Comprehensive Metabolic Panel Stat Lipase Stat Partial Thromboplastin Time Stat Prothrombin Time INR Stat Troponin & CK Cardiac Panel Stat 01/31/21 21:20 COVID19 - ADMIT (STEREOTYPE MOLDER swab/PCR) Stat Discontinued Medications Amlodipine Besylate (Amlodipine 5 Mg Tablet) 10 mg PO NOW ONE Stop: 01/31/21 20:09 Last Admin: 01/31/21 20:19 Dose: 10 mg Documented by: LACIE Aspirin (Aspirin 81 Mg Chew Tab) 324 mg PO NOW ONE Stop: 01/31/21 20:09 Last Admin: 01/31/21 20:19 Dose: 324 mg Documented by: LACIE Metoprolol Tartrate (Metoprolol Ir 25 Mg Tablet) 12.5 mg PO NOW ONE Stop: 01/31/21 20:09 Last Admin: 01/31/21 20:19 Dose: 12.5 mg Documented by: LACIE Vital Signs Vital signs: Vital Signs - 8 hr 01/31/21 19:49 01/31/21 20:22 01/31/21 20:30 Temperature 97.9 F Pulse Rate 63 66 62 Respiratory Rate 14 21 21 Blood Pressure 175/81 H 148/74 H 163/75 H Pulse Oximetry 98 98 97 01/31/21 20:56 01/31/21 21:00 01/31/21 21:30 Temperature Pulse Rate 62 57 L 53 L Respiratory Rate 14 17 16 Blood Pressure 164/79 H 158/77 H 161/84 H Pulse Oximetry 98 98 98 01/31/21 22:00 01/31/21 22:30 01/31/21 23:00 Temperature Pulse Rate 57 L 54 L 57 L Respiratory Rate 19 12 21 Blood Pressure 176/88 H 169/77 H 161/83 H Pulse Oximetry 98 98 98 01/31/21 23:30 Temperature Pulse Rate 55 L Respiratory Rate 13 Blood Pressure 150/80 H Pulse Oximetry 97 MDM - Chest Pain Lab Data Result diagrams: 01/31/21 20:00 01/31/21 20:00 Labs: Lab Results 01/31/21 01/31/21 01/31/21 Range/Units 20:00 20:00 20:00 WBC 7.4 (4.5-11.0) X10^3/uL RBC 4.18 L (4.5-5.9) X10^6/uL Hgb 12.8 L (13.5-17.5) g/dL Hct 37.6 L (41-53) % MCV 89.9 (80-100) fL MCH 30.6 (26-34) PG MCHC 34.0 (30-36) % RDW 12.3 (11.6-14.8) % Plt Count 199 (150-400) X10^3/uL Neut % (Auto) 54.5 (50-75) % Lymph % (Auto) 30.9 (25-40) % [place] % (Auto) 12.0 (3-14) % Eos % (Auto) 2.1 (2-4) % Baso % (Auto) 0.5 (0-2) % Neut # (Auto) 4000 (7977-6413) /uL Lymph # (Auto) 2300 (2581-6167) /uL Montrose # (Auto) 900 (0-900) /uL Eos # (Auto) 200 (0-450) /uL Baso # (Auto) 0 (0-100) /uL PT 12.8 H (10.1-12.7) SECONDS INR 1.1 (0.9-1.3) APTT 34 (26.4-36.2) SECONDS Sodium 139 (137-145) mmol/L Potassium 3.4 (3.4-5.1) mmol/L Chloride 98 (98-107) mmol/L Carbon Dioxide 28 (22-32) mmol/L BUN 28 H (9-20) mg/dL Creatinine 1.33 H (0.66-1.25) mg/dL Estimated GFR 53.2 L (>60) mL/min BUN/Creatinine Ratio 21.1 (6-22) Glucose 100 (80-110) mg/dL Calcium 8.7 (8.4-10.2) mg/dL Total Bilirubin 0.4 (0.2-1.3) mg/dL AST 22 (17-59) IU/L ALT 22 (<50) IU/L Alkaline Phosphatase 69 (38-126) U/L Total Creatine Kinase 57 (55-170) U/L CK-MB (CK-2) TNP CK-MB (CK-2) Rel Index TNP Troponin I < 0.012 (0.01-0.034) ng/mL Total Protein 6.9 (6.3-8.2) g/dL Albumin 4.3 (3.5-5.0) g/dL Globulin 2.6 (1.7-4.1) g/dL Albumin/Globulin Ratio 1.7 (1.0-2.8) Lipase 109 (23-300) U/L SARS-CoV-2 (PCR) (Negative) 01/31/21 Range/Units 21:20 WBC (4.5-11.0) X10^3/uL RBC (4.5-5.9) X10^6/uL Hgb (13.5-17.5) g/dL Hct (41-53) % MCV (80-100) fL MCH (26-34) PG MCHC (30-36) % RDW (11.6-14.8) % Plt Count (150-400) X10^3/uL Neut % (Auto) (50-75) % Lymph % (Auto) (25-40) % [place] % (Auto) (3-14) % Eos % (Auto) (2-4) % Baso % (Auto) (0-2) % Neut # (Auto) (0017-8256) /uL Lymph # (Auto) (7554-3430) /uL [place] # (Auto) (0-900) /uL Eos # (Auto) (0-450) /uL Baso # (Auto) (0-100) /uL PT (10.1-12.7) SECONDS INR (0.9-1.3) APTT (26.4-36.2) SECONDS Sodium (137-145) mmol/L Potassium (3.4-5.1) mmol/L Chloride (98-107) mmol/L Carbon Dioxide (22-32) mmol/L BUN (9-20) mg/dL Creatinine (0.66-1.25) mg/dL Estimated GFR (>60) mL/min BUN/Creatinine Ratio (6-22) Glucose (80-110) mg/dL Calcium (8.4-10.2) mg/dL Total Bilirubin (0.2-1.3) mg/dL AST (17-59) IU/L ALT (<50) IU/L Alkaline Phosphatase (38-126) U/L Total Creatine Kinase (55-170) U/L CK-MB (CK-2) CK-MB (CK-2) Rel Index Troponin I (0.01-0.034) ng/mL Total Protein (6.3-8.2) g/dL Albumin (3.5-5.0) g/dL Globulin (1.7-4.1) g/dL Albumin/Globulin Ratio (1.0-2.8) Lipase (23-300) U/L SARS-CoV-2 (PCR) Negative (Negative) Imaging Data Chest x-ray: Radiologist's Impression: No acute cardiopulmonary process. ECG Data Attestation: I personally reviewed and interpreted this ECG as follows: (Sinus bradycardia rate 48 beats per minute. Normal intervals. No ectopy. No acute ST T wave changes. Normal study.) Discharge Plan Departure Patient Disposition: [facility] Clinical Impression: Crescendo angina, Essential hypertension, H/O angioplasty, Hyperlipidemia, Coronary artery disease Prescriptions: No Action atorvastatin 40 mg tablet 40 mg PO QPM Qty: 90 RF: 3 amlodipine 10 mg tablet 10 mg PO DAILY RF: 0 losartan 100 mg tablet 100 mg PO DAILY Qty: 90 RF: 3 metoprolol tartrate 25 mg tablet 12.5 mg PO BEDTIME RF: 0 metoprolol tartrate 25 mg tablet 12.5 mg PO BEDTIME Qty: 90 RF: 3 aspirin 81 mg Tablet,Delayed Release (Dr/Ec) 81 mg PO DAILY RF: 0 Referrals: Trent Velarde, [Primary Care Provider] -
[2021-01-31 20:13] LABS: Add Manual Diff / Slide Review NO; Basophils Absolute Auto 0 /uL (0-100); Basophils Percent Auto 0.5 % (0-2); Eosinophils Absolute Auto 200 /uL (0-450); Eosinophils Percent Auto 2.1 % (2-4); Hematocrit 37.6 % (41-53); Hemoglobin 12.8 g/dL (13.5-17.5); Lymphocytes Absolute Auto 2300 /uL (1100-4500); Lymphocytes Percent Auto 30.9 % (25-40); Mean Corpuscular Hemoglobin 30.6 PG (26-34); Mean Corpuscular Volume 89.9 fL (80-100); Monocytes Absolute Auto 900 /uL (0-900); Neutrophils Absolute Auto 4000 /uL (1500-7000); Neutrophils Percent Auto 54.5 % (50-75); Platelet Count 199 X10^3/uL (150-400); Red Blood Cell Count 4.18 X10^6/uL (4.5-5.9); Red Cell Distribution Width 12.3 % (11.6-14.8); White Blood Cell Count 7.4 X10^3/uL (4.5-11.0)
[2021-01-31 20:19] LABS: INR 1.1 (0.9-1.3); Prothrombin Time 12.8 SECONDS (10.1-12.7)
[2021-01-31] MEDS: METOPROLOL IR 25 MG TABLET 12.5 MG PO (20:19)
[2021-01-31] MEDS: AMLODIPINE 5 MG TABLET 10 MG PO (20:19)
[2021-01-31] MEDS: ASPIRIN 81 MG CHEW TAB 324 MG PO (20:19)
[2021-01-31 20:21] LABS: PTT Partial Thromboplastin Tim 34 SECONDS (26.4-36.2)
[2021-01-31 20:24] LABS: Alanine Aminotransferase 22 IU/L (<50); Albumin 4.3 g/dL (3.5-5.0); Albumin Globulin Ratio 1.7 (1.0-2.8); Alkaline Phosphatase 69 U/L (38-126); Aspartate Aminotransferase 22 IU/L (17-59); BUN Creatinine Ratio 21.1 (6-22); Bilirubin Total 0.4 mg/dL (0.2-1.3); Blood Urea Nitrogen 28 mg/dL (9-20); Calcium 8.7 mg/dL (8.4-10.2); Carbon Dioxide 28 mmol/L (22-32); Chloride 98 mmol/L (98-107); Creatine Kinase 57 U/L (55-170); Estimated Glomerular Filt Rate 53.2 mL/min (>60); Globulin 2.6 g/dL (1.7-4.1); Glucose 100 mg/dL (80-110); HEMOLYSIS < 15 (0-50); Lipase 109 U/L (23-300); Potassium 3.4 mmol/L (3.4-5.1); Sodium 139 mmol/L (137-145); Total Protein 6.9 g/dL (6.3-8.2)
--- NOTE | 2021-01-31 20:25 | PC.NURSE ---
arrives pain free at this time. Denies SOB at rest.
[2021-01-31 20:34] LABS: Troponin I < 0.012 ng/mL (0.01-0.034)
[2021-01-31 22:19] LABS: COVID19 - ADMIT (NP swab/PCR) Negative (Negative)
--- NOTE | 2021-01-31 23:05 | PC.NURSE ---
Report called to Marion MADRID at [facility]. Requesting call when patient departs facility with [facility]. Shift change report provided to Chayito MADRID
[2021-02-01 00:14] VITALS: BP 145/60; PULSE 55; RESP 16; O2SAT 98
== END 2021-02-01 00:16 ==
PROVIDERS: Emergency Provider Emergency Medicine; PCP Family Medicine
DX: I25.110 Atherosclerotic heart disease of native coronary artery with unstable angina pectoris (principal); I10 Essential (primary) hypertension; E78.5 Hyperlipidemia, unspecified; Z98.62 Peripheral vascular angioplasty status; Z20.822 Contact with and (suspected) exposure to COVID-19
CPT/HCPCS: 36415; 71045; 80053; 82550; 83690; 84484; 85025; 85610; 85730; 87635; 93005; 93010; 99284

== ENCOUNTER → 2021-02-06 10:23 | Outpatient (CLI) | payer MEDICARE, OTHER, SELFPAY ==
--- NOTE | 2021-02-06 10:30 | DI.RAD.S_ITS ---
PROCEDURE: XR LUMBAR SPINE 2-3V INDICATIONS: LOW BACK PAIN TECHNIQUE: 3 views of the lumbar spine were acquired. COMPARISON: None. FINDINGS: Bones: 5 [id number] vertebrae are present. There is trace retrolisthesis of L1 on L2, L2 on L3, L5 on S1 and trace anterolisthesis of L3 on L4. Moderate to severe disc space narrowing is present at L5-S1. Severe foraminal narrowing is present L5-S1, moderate L4-5. No vertebral body compression fractures. No suspicious bony lesions. Soft tissues: Overlying bowel gas pattern is normal. No suspicious soft tissue calcifications. IMPRESSION: Degenerative changes most severe at L5-S1. If clinically indicated, further evaluation with MRI may be obtained. Dictated by: Leah Jackson M.D. on 02/06/2021 at 17:33 Approved by: Leah Jackson M.D. on 02/06/2021 at 17:34
[2021-02-06 12:02] LABS: Add Manual Diff / Slide Review NO; Basophils Absolute Auto 0 /uL (0-100); Basophils Percent Auto 0.3 % (0-2); Eosinophils Absolute Auto 100 /uL (0-450); Eosinophils Percent Auto 1.2 % (2-4); Hematocrit 40.1 % (41-53); Hemoglobin 13.8 g/dL (13.5-17.5); Lymphocytes Absolute Auto 1500 /uL (1100-4500); Lymphocytes Percent Auto 23.8 % (25-40); Mean Corpuscular HGB Conc 34.3 % (30-36); Mean Corpuscular Hemoglobin 30.9 PG (26-34); Monocytes Absolute Auto 600 /uL (0-900); Monocytes Percent Auto 10.2 % (3-14); Neutrophils Absolute Auto 4000 /uL (1500-7000); Neutrophils Percent Auto 64.5 % (50-75); Platelet Count 201 X10^3/uL (150-400); Red Blood Cell Count 4.45 X10^6/uL (4.5-5.9); Red Cell Distribution Width 12.4 % (11.6-14.8); White Blood Cell Count 6.2 X10^3/uL (4.5-11.0)
[2021-02-06 12:28] LABS: Erythrocyte Sedimentation Rate 14 MM/HR (0-15)
[2021-02-06 12:37] LABS: Alanine Aminotransferase 28 IU/L (<50); Albumin 4.5 g/dL (3.5-5.0); Albumin Globulin Ratio 1.6 (1.0-2.8); Alkaline Phosphatase 75 U/L (38-126); Aspartate Aminotransferase 26 IU/L (17-59); BUN Creatinine Ratio 19.3 (6-22); Bilirubin Total 0.4 mg/dL (0.2-1.3); Blood Urea Nitrogen 23 mg/dL (9-20); Calcium 10.1 mg/dL (8.4-10.2); Carbon Dioxide 32 mmol/L (22-32); Chloride 98 mmol/L (98-107); Estimated Glomerular Filt Rate > 60.0 mL/min (>60); Globulin 2.9 g/dL (1.7-4.1); Glucose 104 mg/dL (80-110); HEMOLYSIS < 15 (0-50); Potassium 3.3 mmol/L (3.4-5.1); Sodium 139 mmol/L (137-145); Total Protein 7.4 g/dL (6.3-8.2)
[2021-02-06 12:40] LABS: Rheumatoid Factor < 8.6 IU/mL (<12.0)
[2021-02-08 18:07] LABS: ANA Screen, IFA Negative (.)
== END ==
PROVIDERS: PCP Physician Assistant; Referring Provider Physician Assistant; Visit Provider Physician Assistant
DX: M54.5 Low back pain (principal); M47.817 Spondylosis without myelopathy or radiculopathy, lumbosacral region; M79.643 Pain in unspecified hand
CPT/HCPCS: 36415; 72100; 73110; 80053; 85025; 85651; 86038; 86430

== ENCOUNTER → 2021-06-10 14:11 | Outpatient (CLI) | payer MEDICARE, OTHER, SELFPAY ==
--- NOTE | 2021-06-10 | DI.MRI.S_ITS ---
PROCEDURE: MR LUMBAR SPINE WO CON INDICATIONS: Radiculopathy, lumbar region TECHNIQUE: Noncontrast sagittal T1 spin echo and T2 fast echo, sagittal STIR, axial T1 and T2 fast spin echo through the lumbar spine. In cases with scoliosis, additional coronal T2 fast spin echo may be performed. COMPARISON: None. FINDINGS: Image quality: Excellent. Alignment and Curvature: Grade 1 anterolisthesis of L3 on L4. Bone Marrow: Multilevel degenerative endplate sclerosis and spurring. Diffuse facet arthropathy. No acute fracture identified. Numerous Schmorl's nodes are seen the largest seen in the inferior endplate of L3 but also the superior endplates of L4 and L5. There is mild adjacent marrow edema at the level of the L3 inferior endplate and the L4 superior endplate. Spinal Cord: Conus medullaris terminates at the L1 level. Visualized cord demonstrates normal signal and size. Paraspinous Soft Tissues: No paravertebral masses. T12-L1: Normal appearance. L1-L2: Normal appearance. L2-L3: No canal stenosis. Lateral recesses appear grossly patent. Mild bilateral foraminal narrowing. L3-L4: Moderate to severe canal stenosis. Near complete effacement of both lateral recesses with bilaterally symmetric appearance. Mild bilateral foraminal stenoses. L4-L5: Mild canal narrowing. Near complete effacement of both lateral recesses with bilaterally symmetric appearance. Mild bilateral foraminal stenoses. L5-S1: Normal appearance. IMPRESSION: Moderate to severe L3-L4 canal stenosis. Severe bilateral subarticular narrowing at the L3-L4 and L4-L5 levels. Grade 1 anterolisthesis of L3 on L4. Dictated by: Cyrus Isaac M.D. on 06/10/2021 at 16:28 Approved by: Cyrus Isaac M.D. on 06/10/2021 at 16:38
== END ==
PROVIDERS: PCP Physician Assistant; Referring Provider Orthopaedic Surgery Orthopaedic Surgery of the Spine; Visit Provider Orthopaedic Surgery Orthopaedic Surgery of the Spine
DX: M54.5 Low back pain (principal); M54.16 Radiculopathy, lumbar region; M48.061 Spinal stenosis, lumbar region without neurogenic claudication; M43.16 Spondylolisthesis, lumbar region
CPT/HCPCS: 72148

== ENCOUNTER → 2021-08-15 16:50 | Outpatient (CLI) | payer MEDICARE, OTHER, SELFPAY ==
[2021-08-15 17:43] LABS: Add Manual Diff / Slide Review NO; Basophils Absolute Auto 0 /uL (0-100); Basophils Percent Auto 0.5 % (0-2); Eosinophils Absolute Auto 100 /uL (0-450); Eosinophils Percent Auto 1.7 % (2-4); Hematocrit 38.6 % (41-53); Hemoglobin 13.2 g/dL (13.5-17.5); Lymphocytes Absolute Auto 1800 /uL (1100-4500); Lymphocytes Percent Auto 24.4 % (25-40); Mean Corpuscular HGB Conc 34.2 % (30-36); Mean Corpuscular Volume 90.5 fL (80-100); Monocytes Absolute Auto 700 /uL (0-900); Monocytes Percent Auto 9.5 % (3-14); Neutrophils Absolute Auto 4800 /uL (1500-7000); Neutrophils Percent Auto 63.9 % (50-75); Platelet Count 216 X10^3/uL (150-400); Red Blood Cell Count 4.26 X10^6/uL (4.5-5.9); Red Cell Distribution Width 12.8 % (11.6-14.8); White Blood Cell Count 7.6 X10^3/uL (4.5-11.0)
[2021-08-15 17:59] LABS: Alanine Aminotransferase 23 IU/L (<50); Albumin 4.3 g/dL (3.5-5.0); Albumin Globulin Ratio 1.5 (1.0-2.8); Alkaline Phosphatase 84 U/L (38-126); Aspartate Aminotransferase 24 IU/L (17-59); BUN Creatinine Ratio 20.6 (6-22); Bilirubin Total 0.3 mg/dL (0.2-1.3); Blood Urea Nitrogen 21 mg/dL (9-20); Calcium 9.1 mg/dL (8.4-10.2); Carbon Dioxide 31 mmol/L (22-32); Chloride 103 mmol/L (98-107); Estimated Glomerular Filt Rate > 60.0 mL/min (>60); Globulin 2.8 g/dL (1.7-4.1); Glucose 106 mg/dL (80-110); HEMOLYSIS < 15 (0-50); Potassium 3.4 mmol/L (3.4-5.1); Sodium 141 mmol/L (137-145); Total Protein 7.1 g/dL (6.3-8.2)
== END ==
PROVIDERS: PCP Physician Assistant; Referring Provider Physician Assistant; Visit Provider Physician Assistant
DX: E03.9 Hypothyroidism, unspecified (principal)
CPT/HCPCS: 36415; 80053; 84443; 85025

== ENCOUNTER → 2021-11-27 09:03 | Outpatient (CLI) | payer MEDICARE, OTHER, SELFPAY ==
[2021-11-27 11:55] LABS: COVID19 -Nasal RAPID Negative (Negative)
== END ==
PROVIDERS: PCP Physician Assistant; Referring Provider Surgery; Visit Provider Surgery
DX: Z01.812 Encounter for preprocedural laboratory examination (principal); Z20.822 Contact with and (suspected) exposure to COVID-19
CPT/HCPCS: 87635; C9803

== ENCOUNTER 2021-11-28 06:42 | Day surgery (SDC) | payer MEDICARE, OTHER, SELFPAY ==
--- NOTE | 2021-11-28 | PATH_ITS ---
[facility] Accession Number: [id number] . 01 Material submitted: . PART A: stomach - ANTRUM BIOPSIES PART B: stomach - STOMACH BODY BIOPSY PART C: gastrointestinal site - GASTRIC POLYP . 02 Diagnosis: A. Stomach, Antrum, Biopsies: Acute erosive gastritis with reactive gastropathy. Negative for Helicobacter by immunohistochemistry. Negative for intestinal metaplasia. Negative for dysplasia and malignancy. . B. Stomach, Body, Biopsy: Body type mucosa with mild chronic gastritis. Negative for Helicobacter by immunohistochemistry. Negative for intestinal metaplasia. Negative for dysplasia and malignancy. . C. Stomach, Polyp, Biopsy: Fundic gland polyp. No evidence of Helicobacter on H/E stain. Negative for intestinal metaplasia. Negative for dysplasia and malignancy. [facility] 12/03/2021 1548 Local . 02 Electronically signed: . Wendy Mar MD, Pathologist NPI- [id number] . 01 Gross description: . Part A: ANTRUM BIOPSIES: Received in formalin are multiple fragment(s) of peck, soft tissue measuring 0.1 x 0.1 x 0.1 cm to 0.2 x 0.2 x 0.2 cm submitted entirely in 1 cassette(s) Part B: STOMACH BODY BIOPSY: Received in formalin are 3 fragment(s) of peck, soft tissue measuring 0.1 x 0.1 x 0.1 cm to 0.3 x 0.2 x 0.2 cm submitted entirely in 1 cassette(s) Part C: GASTRIC POLYP: Received in formalin is 1 fragment(s) of peck, soft tissue measuring 0.3 x 0.3 x 0.2 cm submitted entirely in 1 cassette(s) /KAN 11/29/20216 Local . 02 Microscopic: . A-B. Immunohistochemical stains were performed on blocks A and B in order to evaluate for Helicobacter organisms and are both negative. The control stains showed appropriate reactivity. . * This test was developed and its performance characteristics determined by [facility]. It has not been cleared or approved by the U.S. Food and Drug Administration. The FDA has determined that such clearance or approval is not necessary. This test is used for clinical purposes. It should not be regarded as investigational or for research. . 02 Pathologist provided ICD-10: Z12.11, R10.13 . 02 CPT . 844699, 700847, 911155, T89041 Performed at: 01 [facility] [address] [place] [address], [place], [place] [id number] MD Jama Monzon MD Phone: [phone] Performed at: 02 Located Within [facility] [address] [place] [id number] MD Wendy Mar MD Phone: [phone]
[2021-11-28 07:01] VITALS: BP 154/83; PULSE 69; RESP 12; TEMP 36.9; O2SAT 97; BMI 29.0
[2021-11-28] MEDS: LACTATED RINGERS 1,000 ML 100 ML IV (07:11)
--- NOTE | 2021-11-28 07:44 | PM.HP.1 ---
History of Present Illness History of Present Illness Date Patient Seen: 11/28/21 Time Patient Seen: 07:44 Chief complaint: ORC Narrative: 71-year-old man with dysphagia and due for colonoscopy for screening. Seen in September 2021. Please refer to the office note. Patient History Medical History (Updated 10/15/21 @ 09:23 by Garrick Diaz MD) Hyperlipidemia Hypertension STEMI (ST elevation myocardial infarction) Surgical History H/O angioplasty History of prostatectomy Family & Social History Family History (Updated 10/15/21 @ 09:04 by Otilia March RN) Father Age: 96 Heart disease High cholesterol Mental health problem Stroke Mother Age: 93 Heart disease Hypertension High cholesterol Brother Cancer Sister Cancer Social History: household members spouse Tobacco & Substance use: Smoking Status Former smoker alcohol intake former alcohol intake frequency holiday/special occasion Substance Use Type does not use Meds Home Medications and Allergies Home Medications Medication Instructions Recorded Confirmed Type aspirin 81 mg tablet,delayed 81 mg PO DAILY 04/05/19 11/28/21 History release amlodipine 10 mg tablet 10 mg PO DAILY 08/03/20 11/28/21 History losartan 100 mg tablet 100 mg PO DAILY #90 tab 08/06/20 11/28/21 Rx metoprolol tartrate 25 mg tablet 12.5 mg PO BEDTIME tab 08/06/20 11/28/21 History atorvastatin 40 mg tablet 40 mg PO QPM #90 tab 10/05/20 11/28/21 Rx omeprazole 20 mg capsule,delayed 20 mg PO DAILY 10/15/21 11/28/21 History release Allergies Allergy/AdvReac Type Severity Reaction Status Date / Time shellfish derived Allergy Severe Anaphylaxis Verified 11/28/21 06:53 [SHELLFISH DERIVED] Exam Vital Signs (past 8 hours): - 11/28/21 07:01 Temperature 98.4 F Pulse Rate 69 Respiratory Rate 12 Blood Pressure 154/83 H Pulse Oximetry 97 Oxygen Delivery Method Room Air Const General: healthy appearing Resp Effort & Inspection: normal respiratory effort Assessment & Plan Assessment and plan (1) Dyspepsia: Status: Acute (2) Colon cancer screening: Status: Acute Plan Plan for EGD and colonoscopy COVID-19 COVID-19 status: Negative Result date/Date tested (Pos, Neg/Pending): 11/27/21 Time Spent With Patient Critical Care time: I spent a total of [] minutes of critical care time on this patient's care today; this time is exclusive of procedural time.
[2021-11-28] MEDS: MIDAZOLAM 5 MG/5 ML VIAL IV (08:18)
[2021-11-28] MEDS: LIDOCAINE 4% SOLN 50 ML 20 ML TOP (08:18)
[2021-11-28] MEDS: fentaNYL 250 MCG/5 ML INJ IV (08:19)
--- NOTE | 2021-11-28 08:24 | P.OP.EGD&C_ITS ---
Operative Date/Time/Diagnoses Date of procedure: 11/28/21 Time of procedure: 08:24 Pre-op diagnosis: Dysphagia and colon cancer screening Post-op diagnosis: same Procedure & Clinicians Study performed: EGD and colonoscopy Same procedure as scheduled: Yes Indications: Dysphagia and colon cancer screening Surgeon: Garrick Diaz Procedure Notes SCOAP/Timeout: Yes Procedure in detail: Procedure in detail: A timeout was performed. Bite blocked was placed. Patient was positioned in a left lateral decubitus position. Sedation was administered with Versed and fentanyl. Once the patient was sedated the endoscope was i nserted through the bite block and passed through the esophagus and stomach and into the duodenum. The scope was withdrawn and the duodenum, duodenal bulb and antrum were inspected body of the stomach was visualized. The scope was retroflexed to view the hiatus. The scope was withdrawn into the esophagus and the a Z-line was observed. The remainder of the esophagus was observed. Findings: There was mild to moderate antritis and random biopsies were taken from the antrum with cold forceps. There were some small ulcerations with old blood in the slime layer in the distal body of the stomach along the greater curve. Random biopsies were taken from the area of ulcerations with cold forceps. There were a few to polyps in the proximal stomach 1 of which was biopsied with forceps. Next we repositioned the patient for a colonoscopy. A digital rectal exam was performed and was normal. The colonoscope was inserted and advanced to the cecum. The appendiceal orifice was identified and photographed. The scope was slowly withdrawn over greater than 6 minutes. The scope was retroflexed in the rectum. Findings: No polyps. Few scattered diverticula in the sigmoid colon. Internal hemorrhoids. EBL: 2 mL Scope withdrawal time: 2 Sedation minutes: 30 Post-procedure Recommendations: Colonscopy in 10 years and Will call with biopsy results Disposition: PACU
[2021-11-28 08:28] VITALS: BP 147/80; PULSE 78; RESP 14; TEMP 36.8; O2SAT 96
[2021-11-28 08:34] VITALS: BP 132/82; PULSE 72; RESP 14; O2SAT 95
[2021-11-28 08:39] VITALS: BP 134/82; PULSE 72; RESP 16; O2SAT 95
[2021-11-28 08:47] VITALS: BP 132/82; PULSE 70; RESP 14; TEMP 36.5; O2SAT 94
[2021-11-28 09:00] VITALS: BP 139/79; PULSE 70; RESP 16; TEMP 36.6; O2SAT 95
== END 2021-11-28 09:17 | disposition home or self-care (01) ==
PROVIDERS: PCP Physician Assistant; Referring Provider Surgery; Visit Provider Surgery
PROC: 0DJ08ZZ Inspection of Upper Intestinal Tract, Via Natural or Artificial Opening Endoscopic (ICD-10-PCS; CPT 43235; principal; 2021-11-28 07:45)
PROC: 0DJD8ZZ Inspection of Lower Intestinal Tract, Via Natural or Artificial Opening Endoscopic (ICD-10-PCS; CPT 45378; 2021-11-28 07:45)
DX: Z12.11 Encounter for screening for malignant neoplasm of colon (principal); R13.10 Dysphagia, unspecified; E78.5 Hyperlipidemia, unspecified; I10 Essential (primary) hypertension; I25.2 Old myocardial infarction; K64.4 Residual hemorrhoidal skin tags; K57.30 Diverticulosis of large intestine without perforation or abscess without bleeding; K29.00 Acute gastritis without bleeding; K31.7 Polyp of stomach and duodenum
CPT/HCPCS: 43239; G0121; 99152; 99153; J2250; J3010

== ENCOUNTER → 2021-12-10 09:59 | Outpatient (CLI) | payer MEDICARE, OTHER, SELFPAY ==
[2021-12-10 11:15] LABS: Add Manual Diff / Slide Review NO; Basophils Absolute Auto 0 /uL (0-100); Basophils Percent Auto 0.4 % (0-2); Eosinophils Absolute Auto 100 /uL (0-450); Eosinophils Percent Auto 1.7 % (2-4); Hematocrit 39.3 % (41-53); Hemoglobin 13.5 g/dL (13.5-17.5); Lymphocytes Absolute Auto 1700 /uL (1100-4500); Lymphocytes Percent Auto 23.3 % (25-40); Mean Corpuscular HGB Conc 34.4 % (30-36); Mean Corpuscular Hemoglobin 30.6 PG (26-34); Monocytes Absolute Auto 700 /uL (0-900); Monocytes Percent Auto 9.7 % (3-14); Neutrophils Absolute Auto 4900 /uL (1500-7000); Neutrophils Percent Auto 64.9 % (50-75); Platelet Count 240 X10^3/uL (150-400); Red Blood Cell Count 4.42 X10^6/uL (4.5-5.9); Red Cell Distribution Width 13.3 % (11.6-14.8); White Blood Cell Count 7.5 X10^3/uL (4.5-11.0)
[2021-12-10 11:58] LABS: Alanine Aminotransferase 33 IU/L (<50); Albumin 4.3 g/dL (3.5-5.0); Albumin Globulin Ratio 1.4 (1.0-2.8); Alkaline Phosphatase 89 U/L (38-126); Aspartate Aminotransferase 33 IU/L (17-59); BUN Creatinine Ratio 15.8 (6-22); Bilirubin Total 0.6 mg/dL (0.2-1.3); Blood Urea Nitrogen 18 mg/dL (9-20); Calcium 9.2 mg/dL (8.4-10.2); Carbon Dioxide 32 mmol/L (22-32); Chloride 103 mmol/L (98-107); Cholesterol 146 mg/dL (140-199); Estimated Glomerular Filt Rate > 60.0 mL/min (>60); Glucose 107 mg/dL (80-110); HDL Cholesterol 53 mg/dL (40-60); HEMOLYSIS < 15 (0-50); LDL Cholesterol Calculated 79 mg/dL (<100); Potassium 3.5 mmol/L (3.4-5.1); Sodium 140 mmol/L (137-145); Total Protein 7.3 g/dL (6.3-8.2); Triglycerides 68 mg/dL (35-150)
[2021-12-11 05:21] LABS: PSA Ultrasensitive <0.006 ng/mL (0.000-4.000)
== END ==
PROVIDERS: PCP Physician Assistant; Referring Provider Physician Assistant; Visit Provider Physician Assistant
DX: I10 Essential (primary) hypertension (principal); E78.5 Hyperlipidemia, unspecified; C61 Malignant neoplasm of prostate
CPT/HCPCS: 36415; 80053; 80061; 84153; 85025

== ENCOUNTER 2021-12-24 16:21 | Emergency (ER) | payer MEDICARE, OTHER, SELFPAY ==
[2021-12-24 16:32] VITALS: BP 178/81; PULSE 71; RESP 16; TEMP 36.6; O2SAT 97; BMI 29.0
--- NOTE | 2021-12-24 16:37 | DI.RAD.S_ITS ---
PROCEDURE: XR HAND LT MIN 3V INDICATIONS: trauma TECHNIQUE: 3 views of the hand acquired. COMPARISON: [facility], CR, XR HAND 1 OR 2 VIEWS BILATERAL, 01/03/2021, 8:58. FINDINGS: Bones: No acute fractures or dislocations. Carpal bones are normally aligned. No suspicious bony lesions. Mild irregularity of the 3rd middle phalanx is stable when compared to the prior exam, possibly related to remote prior trauma. Soft tissues: No suspicious soft tissue calcifications. IMPRESSION: No acute osseous abnormality. If clinical suspicion and/or symptoms persist, additional imaging with repeat plain films, or advanced imaging (e.g. CT, MRI) may be helpful for further assessment. Dictated by: Sly Marie M.D. on 12/24/2021 at 16:55 Approved by: Sly Marie M.D. on 12/24/2021 at 16:59
--- NOTE | 2021-12-24 21:49 | ED.GENADULT ---
HPI - General Adult General Chief complaint: Extremity Injury, Upper Stated complaint: LEFT HAND INJURY SCREW Time Seen by Provider: 12/24/21 21:49 Source: patient Mode of arrival: Ambulatory History of Present Illness HPI narrative: 71-year-old gentleman with history of hypertension and hyperlipidemia was working in his shop today and had a screw go through thenar eminence of his left hand he has a small puncture wound on the palmar surface and small puncture wound on the dorsal surface. He is completely neurovascularly intact Related Data Home Medications Medication Instructions Recorded Confirmed aspirin 81 mg tablet,delayed 81 mg PO DAILY 04/05/19 11/28/21 release amlodipine 10 mg tablet 10 mg PO DAILY 08/03/20 11/28/21 metoprolol tartrate 25 mg tablet 12.5 mg PO BEDTIME tab 08/06/20 11/28/21 omeprazole 20 mg capsule,delayed 20 mg PO DAILY 10/15/21 11/28/21 release Previous Rx's Medication Instructions Recorded losartan 100 mg tablet 100 mg PO DAILY #90 tab 08/06/20 atorvastatin 40 mg tablet 40 mg PO QPM #90 tab 10/05/20 cephalexin 500 mg capsule 500 mg PO TID #15 cap 12/24/21 hydrocodone 5 mg-acetaminophen 325 1 tab PO Q6H PRN #10 tab 12/24/21 mg tablet Allergies Allergy/AdvReac Type Severity Reaction Status Date / Time shellfish derived Allergy Severe Anaphylaxis Verified 11/28/21 06:53 [SHELLFISH DERIVED] Review of Systems Review of Systems Narrative: No fevers, weakness, decreased use of his hand Patient History Medical History Hyperlipidemia Hypertension STEMI (ST elevation myocardial infarction) Surgical History H/O angioplasty History of prostatectomy Family History Father Age: 96 Heart disease High cholesterol Mental health problem Stroke Mother Age: 93 Heart disease Hypertension High cholesterol Brother Cancer Sister Cancer Social History household members: spouse Smoking Status: Former smoker alcohol intake: former Smoking Status: Former smoker alcohol intake frequency: holidays/special occasions only Substance Use Type: does not use Exam Narrative Exam Narrative: General: Alert appropriate in no acute distress Respiratory: Able to speak in full sentences, no obvious respiratory distress Skin: No obvious rashes, warm and dry Neurologic: Grossly intact no obvious asymmetries or abnormalities Psych: appropriate insight and affect, cooperative Extremity left hand is examined. He has an entrance wound ?close to the thenar crease on the palmar surface with an exit wound 1 cm distal to carpal bones of close to the base of the thumb. He is neurovascularly intact. Bleeding has stopped. Wound has been thoroughly washed. No signs of infection but he is beginning to have some swelling. Mild tenderness. Initial Vital Signs Initial Vital Signs: Vital Signs Temperature 97.9 F 12/24/21 16:32 Pulse Rate 71 12/24/21 16:32 Respiratory Rate 16 12/24/21 16:32 Blood Pressure 178/81 H 12/24/21 16:32 Pulse Oximetry 97 12/24/21 16:32 Course Orders Ordered: Discontinued Medications Hydrocodone Bitart/Acetaminophen (Hydrocodone/Acet 5/325 Prepack) 1 bottle MISC SEEINSTR ONE Stop: 12/24/21 21:51 Last Admin: 12/24/21 21:59 Dose: 1 bottle Documented by: EL Diphtheria/Tetanus/Acell Pertussis (Tet,Diph,Pertuss(Acell),Vac/Pf 0.5 Ml Syringe) 0.5 ml IM .ONCE ONE Stop: 12/24/21 21:44 Last Admin: 12/24/21 21:59 Dose: 0.5 ml Documented by: EL Vital Signs Vital signs: Vital Signs - 8 hr 12/24/21 16:32 Temperature 97.9 F Pulse Rate 71 Respiratory Rate 16 Blood Pressure 178/81 H Pulse Oximetry 97 Medical Decision Making Imaging Data X-ray hand: Radiologist's Impression: FINDINGS:? ? Bones:? No acute fractures or dislocations.? Carpal bones are normally aligned.? No suspicious bony lesions.? Mild irregularity of the 3rd middle phalanx is stable when compared to the prior exam, possibly related to remote prior trauma. ? Soft tissues:? No suspicious soft tissue calcifications.? ? ? IMPRESSION:? No acute osseous abnormality.? If clinical suspicion and/or symptoms persist, additional imaging with repeat plain films, or advanced imaging (e.g. CT, MRI) may be helpful for further assessment. ? ? Dictated by: Sly Marie M.D. on 12/24/2021 at 16:55? ?? [facility] Narrative Medical decision making narrative: Through and through wound with a screw through the thenar eminence of the left hand. Offending object was removed prior to arrival in the emergency department. Wound has been cleaned. Minimal bleeding. X-ray is reassuring beginning have some swelling tenderness. He is placed on antibiotics given a brief course of narcotics signs and symptoms of deep for hand infection are very clearly reviewed with clear instructions to return with any signs of complication and warnings that hand infections can get extremely complicated extremely quickly and not to wait for further evaluation. He verbally voices understanding and is safe for home discharge 2922 6pm phone call follow-up. His notes that the hand was a bit more swollen but that got better with some icing. Pain is controlled and there is no signs of infection. Discharge Plan Departure Patient Disposition: Home Clinical Impression: Puncture wound of hand Instructions: DI for Hand Injury Activity Restrictions/Additional Instructions: Thank you for coming in today The x-ray of your hand is reassuring. The swelling you are experiencing is to be expected. Using Tylenol for moderate pain and a combination of 1 Tylenol with 1 Vicodin for severe pain can be helpful. If the hand is throbbing, keeping it elevated above the level of your heart can help. You were given a tetanus shot today I would like to start you on 5 days of cephalexin, and antibiotic, to prevent any infection. Hand infections can be quite complicated. If you notice increasing redness, drainage, any streaks up your arm or significantly increasing swelling or pain you need to come back for further evaluation Prescriptions were electronically transmitted to [email or web address] I hope you heal quickly Prescriptions: New cephalexin 500 mg capsule 500 mg PO TID Qty: 15 0RF hydrocodone-acetaminophen 5-325 mg tablet 1 tab PO Q6H PRN (Reason: pain) Qty: 10 0RF No Action atorvastatin 40 mg tablet 40 mg PO QPM Qty: 90 3RF amlodipine 10 mg tablet 10 mg PO DAILY 0RF losartan 100 mg tablet 100 mg PO DAILY Qty: 90 3RF metoprolol tartrate 25 mg tablet 12.5 mg PO BEDTIME 0RF omeprazole 20 mg capsule,delayed release(DR/EC) 20 mg PO DAILY 0RF aspirin 81 mg Tablet,Delayed Release (Dr/Ec) 81 mg PO DAILY 0RF Referrals: Valerie Logan PA-C [Primary Care Provider] -
[2021-12-24] MEDS: TET,DIPH,PERTUSS(ACELL),VAC/PF 0.5 ML SYRINGE IM (21:59)
[2021-12-24] MEDS: HYDROCODONE/ACET 5/325 PREPACK 1 BOTTLE MISC (21:59)
== END 2021-12-24 22:01 | disposition home or self-care (01) ==
PROVIDERS: Emergency Provider Emergency Medicine; PCP Physician Assistant
DX: S61.432A Puncture wound without foreign body of left hand, initial encounter (principal); W26.8XXA Contact with other sharp object(s), not elsewhere classified, initial encounter; Z23 Encounter for immunization
CPT/HCPCS: 73130; 90471; 99283; 90715

== ENCOUNTER → 2022-09-29 14:04 | Outpatient (CLI) | payer MEDICARE, OTHER, SELFPAY ==
[2022-09-29 14:34] LABS: Hemoglobin A1C% w Est Avg Glu 5.5 % (4.0-6.0)
[2022-09-29 14:41] LABS: BUN Creatinine Ratio 18.3 (6-22); Blood Urea Nitrogen 22 mg/dL (9-20); Carbon Dioxide 27 mmol/L (22-32); Chloride 103 mmol/L (98-107); Estimated Glomerular Filt Rate > 60 mL/min (>60); Glucose 106 mg/dL (80-110); HEMOLYSIS < 15 (0-50); Potassium 4.2 mmol/L (3.4-5.1); Sodium 139 mmol/L (137-145)
[2022-09-29 15:12] LABS: TSH w/ Reflex to FT4 2.09 uIU/mL (0.47-4.68)
== END ==
PROVIDERS: PCP Family Medicine; Referring Provider Family Medicine; Visit Provider Family Medicine
DX: N28.9 Disorder of kidney and ureter, unspecified (principal); E03.8 Other specified hypothyroidism
CPT/HCPCS: 36415; 80048; 83036; 84443

== ENCOUNTER → 2022-10-27 08:48 | Outpatient (CLI) | payer MEDICARE, OTHER, SELFPAY ==
[2022-10-27 09:49] LABS: Add Manual Diff / Slide Review NO; Basophils Absolute Auto 0 /uL (0-100); Basophils Percent Auto 0.5 % (0-2); Eosinophils Absolute Auto 100 /uL (0-450); Eosinophils Percent Auto 1.4 % (2-4); Hematocrit 37.9 % (41-53); Hemoglobin 13.1 g/dL (13.5-17.5); Lymphocytes Absolute Auto 1600 /uL (1100-4500); Lymphocytes Percent Auto 18.4 % (25-40); Mean Corpuscular HGB Conc 34.7 % (30-36); Mean Corpuscular Volume 89.3 fL (80-100); Monocytes Absolute Auto 800 /uL (0-900); Monocytes Percent Auto 8.9 % (3-14); Neutrophils Absolute Auto 6000 /uL (1500-7000); Neutrophils Percent Auto 70.8 % (50-75); Platelet Count 225 X10^3/uL (150-400); Red Blood Cell Count 4.24 X10^6/uL (4.5-5.9); Red Cell Distribution Width 12.6 % (11.6-14.8); White Blood Cell Count 8.5 X10^3/uL (4.5-11.0)
== END ==
PROVIDERS: PCP Family Medicine; Referring Provider Family Medicine; Visit Provider Family Medicine
DX: I10 Essential (primary) hypertension (principal); Z98.62 Peripheral vascular angioplasty status
CPT/HCPCS: 36415; 85025

== ENCOUNTER 2023-02-26 22:59 | Emergency (ER) | payer MEDICARE, OTHER, SELFPAY ==
[2023-02-26 23:04] VITALS: PULSE 81; O2SAT 96
[2023-02-26 23:12] VITALS: BP 172/82; PULSE 72; RESP 16; O2SAT 97
[2023-02-26 23:16] VITALS: BP 122/97; BP 159/84; PULSE 67; PULSE 75; RESP 16; RESP 21; TEMP 36.8; O2SAT 97; BMI 29.3
--- NOTE | 2023-02-26 23:21 | DI.RAD.S_ITS ---
PROCEDURE: XR CHEST 1V INDICATIONS: chest pain TECHNIQUE: One view of the chest was acquired. COMPARISON: [facility], CR, XR CHEST 1V, 01/31/2021, 20:08. [facility], CR, XR CHEST 1V, 04/05/2019, 15:34. FINDINGS: Surgical changes and devices: None. Lungs and pleura: Lungs are clear. No pleural effusions or pneumothorax. Mediastinum: Mediastinal contours appear normal. Heart size is normal. Bones and chest wall: No suspicious bony lesions. Overlying soft tissues appear unremarkable. IMPRESSION: No acute cardiopulmonary abnormality. Dictated by: Roger Yao M.D. on 02/26/2023 at 23:56 Approved by: Roger Yao M.D. on 02/26/2023 at 23:56
[2023-02-26 23:28] LABS: INR 1.1 (0.9-1.3); Prothrombin Time 12.3 SECONDS (10.1-12.7)
[2023-02-26 23:29] LABS: Add Manual Diff / Slide Review NO; Basophils Absolute Auto 100 /uL (0-100); Basophils Percent Auto 0.6 % (0-2); Eosinophils Absolute Auto 200 /uL (0-450); Eosinophils Percent Auto 1.9 % (2-4); Hematocrit 34.7 % (41-53); Hemoglobin 12.4 g/dL (13.5-17.5); Lymphocytes Absolute Auto 2700 /uL (1100-4500); Lymphocytes Percent Auto 27.2 % (25-40); Mean Corpuscular HGB Conc 35.6 % (30-36); Mean Corpuscular Hemoglobin 31.3 PG (26-34); Mean Corpuscular Volume 87.9 fL (80-100); Monocytes Absolute Auto 1000 /uL (0-900); Monocytes Percent Auto 9.7 % (3-14); Neutrophils Absolute Auto 5900 /uL (1500-7000); Neutrophils Percent Auto 60.6 % (50-75); Platelet Count 240 X10^3/uL (150-400); Red Blood Cell Count 3.95 X10^6/uL (4.5-5.9); Red Cell Distribution Width 12.6 % (11.6-14.8); White Blood Cell Count 9.8 X10^3/uL (4.5-11.0)
[2023-02-26 23:30] VITALS: BP 158/81; PULSE 64; RESP 15; O2SAT 96
[2023-02-26 23:31] LABS: PTT Partial Thromboplastin Tim 32 SECONDS (26-36)
[2023-02-26 23:34] LABS: Alanine Aminotransferase 30 IU/L (<50); Albumin 4.1 g/dL (3.5-5.0); Albumin Globulin Ratio 1.4 (1.0-2.8); Alkaline Phosphatase 77 U/L (38-126); Aspartate Aminotransferase 29 IU/L (17-59); BUN Creatinine Ratio 25.4 (6-22); Bilirubin Total 0.3 mg/dL (0.2-1.3); Blood Urea Nitrogen 30 mg/dL (9-20); Calcium 8.8 mg/dL (8.4-10.2); Carbon Dioxide 30 mmol/L (22-32); Chloride 98 mmol/L (98-107); Creatine Kinase 148 U/L (55-170); Estimated Glomerular Filt Rate > 60 mL/min (>60); Glucose 118 mg/dL (80-110); HEMOLYSIS < 15 (0-50); Lipase 162 U/L (23-300); Magnesium 1.6 mg/dL (1.6-2.3); Potassium 2.9 mmol/L (3.4-5.1); Sodium 137 mmol/L (137-145); Total Protein 7.1 g/dL (6.3-8.2)
[2023-02-26 23:45] VITALS: BP 146/79; PULSE 68; RESP 11; O2SAT 96
[2023-02-26 23:45] LABS: COVID19 -Nasal RAPID Negative (Negative); Troponin I < 0.012 ng/mL (0.01-0.034)
[2023-02-26 23:49] LABS: CKMB % Relative Index 1.7 % (1.5-5.0); Creatine Kinase MB 2.49 ng/mL (<2.37)
[2023-02-27] VITALS (10 sets, daily range): BP systolic 138–176; BP diastolic 77–92; PULSE 59–68; RESP 13–22; O2SAT 95–96
--- NOTE | 2023-02-27 00:24 | ED_ITS ---
HPI - Chest Pain General Chief Complaint: Chest Pain Stated Complaint: chest discomfort, nausea, hx of heart issues Time Seen by Provider: 02/27/23 00:24 Source: patient Mode of arrival: Ambulatory Limitations: no limitations History of Present Illness HPI narrative: This is a 72-year-old male with history of coronary artery disease, cardiac stents x2, hypertension, dyslipidemia, GERD and chronic pain with complaint of irregular heartbeat and lightheadedness intermittently for the past couple weeks. Patient has felt generally unwell in the last day. He flew back from [facility] which was extended trip until [address] [place] [address] and then back to [place] and arrived at 3:00 a.m. on 02/26/2023 and has just not felt well since then. He is had 2 prior heart attacks he states he is felt uneasy but did not have the exact same symptoms otherwise. Did have a little bit of tightness across his chest it lasts for an hour to without radiation, he denies any exacerbating factors, he would a few seconds of sweatiness, some nausea but no vomiting. He has not had any shortness of breath. He denies any swelling in extremities. No lightheadedness or syncope today. Patient notes the OD is prior he was pouring sweat. He is had cardiac stents x2. He states he did increase his gabapentin to 2 tablets about 2 or 3 weeks ago. He does still take an aspirin daily and had HCTZ added to his blood pressure medications in the last couple weeks. He states his blood pressures been a systolic of 120s which is atypical he is normally 140s. Patient also notes that he is not been taking his potassium since [facility] has been about a month. Dr. Mckeon his PCP, his manager lan is Dr. Ribera in [place]. Related Data Home Medications Medication Instructions Recorded Confirmed aspirin 81 mg tablet,delayed 81 mg PO DAILY 04/05/19 10/27/22 release Previous Rx's Medication Instructions Recorded losartan 100 mg tablet 100 mg PO DAILY #90 tabs 08/06/20 gabapentin 300 mg capsule 300 mg PO TID PRN pain #90 caps 09/29/22 losartan 100 1 tab PO DAILY blood pressure #90 10/27/22 mg-hydrochlorothiazide 25 mg tablet tabs amlodipine 10 mg tablet See Rx Instructions .Route 11/27/22 .COMPLEX #90 tabs atorvastatin 40 mg tablet 40 mg PO QPM #90 tabs 11/27/22 metoprolol tartrate 25 mg tablet See Rx Instructions .Route 11/27/22 .COMPLEX #45 tabs omeprazole 40 mg capsule,delayed See Rx Instructions .Route 11/27/22 release .COMPLEX #90 caps Allergies Allergy/AdvReac Type Severity Reaction Status Date / Time shellfish derived Allergy Severe Anaphylaxis Verified 02/26/23 23:28 [SHELLFISH DERIVED] Review of Systems Review of Systems ROS Unobtainable: All systems reviewed & are unremarkable except as noted in HPI and below Patient History Medical History Chronic low back pain Hyperlipidemia Hypertension STEMI (ST elevation myocardial infarction) Surgical History H/O angioplasty History of prostatectomy Family History Father Age: 97 Heart disease High cholesterol Mental health problem Stroke Mother Age: 94 Heart disease Hypertension High cholesterol Brother Cancer Sister Cancer Social History household members: spouse Smoking Status: Former smoker alcohol intake: former Smoking Status: Former smoker alcohol intake frequency: holidays/special occasions only Substance Use Type: does not use Exam Narrative Exam Narrative: GENERAL: Alert and oriented x three, male in mild distress. HEENT: Head normocephalic, atraumatic, EOMI, pupils reactive, face symmetric, moist mucous membranes NECK: Supple, full range of motion CARDIOVASCULAR: Regular rate and rhythm without murmurs, rubs or gallops. No JVD. No swelling bilateral lower extremities. RESPIRATORY: Breath sounds equal bilaterally, no wheezes rales or rhonchi. ABDOMEN: Soft, nontender. Normoactive bowel sounds all 4 quadrants. No guarding or rebound, rigidity, no mass : No CVA tenderness EXTREMITIES: Normal range of motion, no clubbing or edema. Neurovascularly intact NEUROLOGICAL: Cranial nerves II through XII grossly intact. Moving all extremities SKIN: Warm, dry, no petechiae, no rashes or lesions. Initial Vital Signs Initial Vital Signs: Vital Signs Pulse Rate 81 02/26/23 23:04 Pulse Oximetry 96 04/13/23 23:04 Course Orders Ordered: ED Orders 02/26/23 23:10 COVID19 -Nasal RAPID Stat Complete Blood Count AUTO DIFF Stat Comprehensive Metabolic Panel Stat Lipase Stat Magnesium Stat PTT Partial Thromboplastin Leon Stat Prothrombin Time INR Stat Troponin & CK Cardiac Panel Stat 02/26/23 23:21 XR chest 1V Stat EKG-12 Lead Stat 02/27/23 00:40 D Dimer Stat 02/27/23 01:11 Trop I [Troponin I] Stat Discontinued Medications Aspirin (Aspirin 81 Mg Chew Tab) 324 mg PO NOW ONE Stop: 02/26/23 23:22 Potassium Chloride (Potassium Chloride 20 Meq/15 Ml Udc) 40 meq PO NOW ONE Stop: 02/27/23 00:40 Last Admin: 02/27/23 00:48 Dose: 40 meq Documented By: HNG Vital Signs Vital signs: Vital Signs - 8 hr 02/26/23 23:16 02/26/23 23:04 02/26/23 23:12 Temperature 98.2 F Pulse Rate 75 81 Respiratory Rate 21 Blood Pressure 122/97 H 172/82 H Pulse Oximetry 97 96 Oxygen Delivery Method Room Air 02/26/23 23:12 02/26/23 23:16 02/26/23 23:16 Temperature Pulse Rate 72 67 Respiratory Rate 16 16 Blood Pressure 159/84 H Pulse Oximetry 97 97 Oxygen Delivery Method 02/26/23 23:30 02/26/23 23:30 02/26/23 23:45 Temperature Pulse Rate 64 Respiratory Rate 15 Blood Pressure 158/81 H 146/79 H Pulse Oximetry 96 Oxygen Delivery Method 02/26/23 23:45 02/27/23 00:01 02/27/23 00:03 Temperature Pulse Rate 68 63 Respiratory Rate 11 L 19 Blood Pressure 152/82 H Pulse Oximetry 96 96 Oxygen Delivery Method 02/27/23 00:03 02/27/23 00:15 02/27/23 00:15 Temperature Pulse Rate 62 63 Respiratory Rate 13 16 Blood Pressure 152/78 H Pulse Oximetry 96 96 Oxygen Delivery Method 02/27/23 00:30 02/27/23 00:31 02/27/23 00:31 Temperature Pulse Rate 68 67 Respiratory Rate 20 Blood Pressure 171/92 H Pulse Oximetry 95 95 Oxygen Delivery Method 02/27/23 00:47 02/27/23 00:47 02/27/23 01:00 Temperature Pulse Rate 65 60 Respiratory Rate 22 15 Blood Pressure 176/79 H Pulse Oximetry 95 96 Oxygen Delivery Method 02/27/23 01:01 02/27/23 01:01 02/27/23 01:15 Temperature Pulse Rate 60 Respiratory Rate 14 Blood Pressure 157/82 H 145/77 H Pulse Oximetry 95 Oxygen Delivery Method 02/27/23 01:15 02/27/23 01:30 02/27/23 01:30 Temperature Pulse Rate 61 59 L Respiratory Rate 18 17 Blood Pressure 138/79 Pulse Oximetry 95 95 Oxygen Delivery Method MDM - Chest Pain Lab Data 02/26/23 23:10 02/26/23 23:10 Labs: Lab Results 02/26/23 02/26/23 02/26/23 Range/Units 23:10 23:10 23:10 WBC 9.8 (4.5-11.0) X10^3/uL RBC 3.95 L (4.5-5.9) X10^6/uL Hgb 12.4 L (13.5-17.5) g/dL Hct 34.7 L (41-53) % MCV 87.9 (80-100) fL MCH 31.3 (26-34) PG MCHC 35.6 (30-36) % RDW 12.6 (11.6-14.8) % Plt Count 240 (150-400) X10^3/uL Neut % (Auto) 60.6 (50-75) % Lymph % (Auto) 27.2 (25-40) % Otero % (Auto) 9.7 (3-14) % Eos % (Auto) 1.9 L (2-4) % Baso % (Auto) 0.6 (0-2) % Neut # (Auto) 5900 (9851-0574) /uL Lymph # (Auto) 2700 (7836-8463) /uL Otero # (Auto) 1000 H (0-900) /uL Eos # (Auto) 200 (0-450) /uL Baso # (Auto) 100 (0-100) /uL PT 12.3 (10.1-12.7) SECONDS INR 1.1 (0.9-1.3) APTT 32 (26-36) SECONDS D-Dimer (<500) ng/ml Sodium 137 (137-145) mmol/L Potassium 2.9 L (3.4-5.1) mmol/L Chloride 98 (98-107) mmol/L Carbon Dioxide 30 (22-32) mmol/L BUN 30 H (9-20) mg/dL Creatinine 1.18 (0.66-1.25) mg/dL Estimated GFR > 60 (>60) mL/min BUN/Creatinine Ratio 25.4 H (6-22) Glucose 118 H (80-110) mg/dL Calcium 8.8 (8.4-10.2) mg/dL Magnesium 1.6 (1.6-2.3) mg/dL Total Bilirubin 0.3 (0.2-1.3) mg/dL AST 29 (17-59) IU/L ALT 30 (<50) IU/L Alkaline Phosphatase 77 (38-126) U/L Total Creatine Kinase 148 (55-170) U/L CK-MB (CK-2) 2.49 H (<2.37) ng/mL CK-MB (CK-2) Rel Index 1.7 (1.5-5.0) % Troponin I < 0.012 (0.01-0.034) ng/mL Total Protein 7.1 (6.3-8.2) g/dL Albumin 4.1 (3.5-5.0) g/dL Globulin 3.0 (1.7-4.1) g/dL Albumin/Globulin Ratio 1.4 (1.0-2.8) Lipase 162 (23-300) U/L SARS-CoV-2 (PCR) (Negative) 02/26/23 02/26/23 02/27/23 Range/Units 23:10 23:10 01:11 WBC (4.5-11.0) X10^3/uL RBC (4.5-5.9) X10^6/uL Hgb (13.5-17.5) g/dL Hct (41-53) % MCV (80-100) fL MCH (26-34) PG MCHC (30-36) % RDW (11.6-14.8) % Plt Count (150-400) X10^3/uL Neut % (Auto) (50-75) % Lymph % (Auto) (25-40) % Otero % (Auto) (3-14) % Eos % (Auto) (2-4) % Baso % (Auto) (0-2) % Neut # (Auto) (9423-3331) /uL Lymph # (Auto) (7812-5699) /uL Otero # (Auto) (0-900) /uL Eos # (Auto) (0-450) /uL Baso # (Auto) (0-100) /uL PT (10.1-12.7) SECONDS INR (0.9-1.3) APTT (26-36) SECONDS D-Dimer 272 (<500) ng/ml Sodium (137-145) mmol/L Potassium (3.4-5.1) mmol/L Chloride (98-107) mmol/L Carbon Dioxide (22-32) mmol/L BUN (9-20) mg/dL Creatinine (0.66-1.25) mg/dL Estimated GFR (>60) mL/min BUN/Creatinine Ratio (6-22) Glucose (80-110) mg/dL Calcium (8.4-10.2) mg/dL Magnesium (1.6-2.3) mg/dL Total Bilirubin (0.2-1.3) mg/dL AST (17-59) IU/L ALT (<50) IU/L Alkaline Phosphatase (38-126) U/L Total Creatine Kinase (55-170) U/L CK-MB (CK-2) (<2.37) ng/mL CK-MB (CK-2) Rel Index (1.5-5.0) % Troponin I < 0.012 (0.01-0.034) ng/mL Total Protein (6.3-8.2) g/dL Albumin (3.5-5.0) g/dL Globulin (1.7-4.1) g/dL Albumin/Globulin Ratio (1.0-2.8) Lipase (23-300) U/L SARS-CoV-2 (PCR) Negative (Negative) Imaging Data Chest x-ray: Radiologist's Impression: [address] [address] XRay Report Signed Patient: Flaco Brown MR#: [id number] : 1950 Acct:[id number] Age/Sex: 72 / M Date of Service: 02/26/23 Loc: ED Accession Number: [id number] ?? Procedure: XR chest 1V Ordering Provider: Candie Servin D.O. PROCEDURE:? XR CHEST 1V ? INDICATIONS:? chest pain ? TECHNIQUE:? One view of the chest was acquired.? ? COMPARISON:? [facility], CR, XR CHEST 1V, 01/31/2021, 20:08.? [facility], CR, XR CHEST 1V, 04/05/2019, 15:34. ? FINDINGS:? ? Surgical changes and devices:? None.? ? Lungs and pleura:? Lungs are clear.? No pleural effusions or pneumothorax.? ? Mediastinum:? Mediastinal contours appear normal.? Heart size is normal.? ? Bones and chest wall:? No suspicious bony lesions.? Overlying soft tissues appear unremarkable.? ? IMPRESSION:? No acute cardiopulmonary abnormality. ? ? ? Dictated by: Roger Yao M.D. on 02/26/2023 at 23:56 ? ? Approved by: Roger Yao M.D. on 02/26/2023 at 23:56?? ECG Data Attestation: I personally reviewed and interpreted this ECG as follows: Prior ECG tracings: available for review Interpretation: Sinus rhythm rate of 72 ID 180 QRS of 98 QTC 413. Patient has but I suspect is motion artifact. No clear ST elevation. Patient has prior from 01/31/2021. EKG 2. Sinus rhythm with premature atrial complex, rate of 65 ID 176 QRS 88 QTC 440. Patient has Q-waves in 3 and AVF. No acute ST elevation. Nonspecific change. MDM Narrative Medical decision making narrative: This is a 72-year-old male who presents with complaint of palpitations intermitt ently as well some chest tightness that was about an hour to earlier today. Patient just flew back from [facility] extended trip. He notes that he has been off his potassium supplementation and recently had HCTZ added. Patient labs normal CBC, coags, BUN slightly elevated with a potassium of 2.9, creatinine is 1.8 which appears similar to patient's prior from September of 2022. Glucose is 118 with negative bilirubin, CK-MB is 2.49 relative index 1.7 with a negative troponin. Repeat troponin is negative. Patient's EKG does not show clear dynamic changes does not appear to be arrhythmia I suspect more motion artifact. Repeat EKG shows nonspecific change. Discussed with patient his palpitations could certainly be related to his hypokalemia. We did discuss chest pain observation which is my recommendation for the tightness across his chest. He is negative with troponin x2 but does have risk factors. Patient elects to return home. Discussed to continue his potassium, he notes they HCTZ been on board for about 3 months but he has not been taking his potassium supplementation for a couple weeks. Discussed he does need to follow up with his cardiology team and if he has recurrent episodes to return. Discharge Plan Departure Patient Disposition: Home Clinical Impression: Hypokalemia, Palpitations, Chest pain Instructions: DI for Hypokalemia, DI for Chest Pain Activity Restrictions/Additional Instructions: Please follow-up with your cardiology team for recheck. Your potassium was low today, it was replaced orally but this can sometimes lead to palpitations or arrhythmias. Please continue your home medications as prescribed. Please restart your potassium supplement. Please return for new or worsening chest pain, shortness of breath, lightheadedness or passing out, persistent palpitations or fast or irregular heartbeat, new swelling in your extremities, sweating, persistent nausea or other new or concerning changes. Prescriptions: No Action metoprolol tartrate 25 mg tablet See Rx Instructions .ROUTE .COMPLEX Qty: 45 1RF Dose Instruction: TAKE 1/2 tablet BY MOUTH DAILY with food FOR 90 days Rx Instructions: TAKE 1/2 tablet BY MOUTH DAILY with food FOR 90 days amlodipine 10 mg tablet See Rx Instructions .ROUTE .COMPLEX Qty: 90 3RF Dose Instruction: TAKE ONE TABLET BY MOUTH ONE TIME DAILY Rx Instructions: TAKE ONE TABLET BY MOUTH ONE TIME DAILY omeprazole 40 mg capsule,delayed release(DR/EC) See Rx Instructions .ROUTE .COMPLEX Qty: 90 3RF Dose Instruction: Take 1 capsule by mouth 30 minutes before morning meal once a day for 90 days Rx Instructions: Take 1 capsule by mouth 30 minutes before morning meal once a day for 90 days atorvastatin 40 mg tablet 40 mg PO QPM Qty: 90 3RF losartan 100 mg tablet 100 mg PO DAILY Qty: 90 3RF gabapentin 300 mg capsule 300 mg PO TID PRN (Reason: pain) Qty: 90 11RF losartan-hydrochlorothiazide 100-25 mg tablet 1 tab PO DAILY Qty: 90 3RF aspirin 81 mg Tablet,Delayed Release (Dr/Ec) 81 mg PO DAILY Referrals: Betty Mckeon DO [Primary Care Provider] - Stand Alone Forms: Patient Portal/API
[2023-02-27] MEDS: POTASSIUM CHLORIDE 20 MEQ/15 ML UDC 40 MEQ PO (00:48)
[2023-02-27 00:49] LABS: D Dimer 272 ng/ml (<500)
[2023-02-27 01:47] LABS: Troponin I < 0.012 ng/mL (0.01-0.034)
== END 2023-02-27 02:24 | disposition home or self-care (01) ==
PROVIDERS: Emergency Provider Emergency Medicine; PCP Family Medicine
DX: E87.6 Hypokalemia (principal); R00.2 Palpitations; R07.9 Chest pain, unspecified; Z20.822 Contact with and (suspected) exposure to COVID-19
CPT/HCPCS: 36415; 71045; 80053; 82550; 82553; 83690; 83735; 84484; 85025; 85379; 85610; 85730; 87635; 93005; 93010; 99284; C9803

== ENCOUNTER → 2023-03-13 15:36 | Outpatient (CLI) | payer MEDICARE, OTHER, SELFPAY ==
[2023-03-13 17:48] LABS: BUN Creatinine Ratio 17.1 (6-22); Blood Urea Nitrogen 22 mg/dL (9-20); Calcium 8.8 mg/dL (8.4-10.2); Carbon Dioxide 29 mmol/L (22-32); Chloride 99 mmol/L (98-107); Estimated Glomerular Filt Rate 59 mL/min (>60); Glucose 121 mg/dL (80-110); HEMOLYSIS < 15 (0-50); Potassium 3.2 mmol/L (3.4-5.1); Sodium 137 mmol/L (137-145)
== END ==
PROVIDERS: PCP Family Medicine; Referring Provider Family Medicine; Visit Provider Family Medicine
DX: E87.6 Hypokalemia (principal)
CPT/HCPCS: 36415; 80048

== ENCOUNTER → 2023-05-12 12:42 | Outpatient (CLI) | payer MEDICARE, OTHER, SELFPAY ==
[2023-05-12 14:05] LABS: Hematocrit 37.4 % (41-53); Mean Corpuscular HGB Conc 34.6 % (30-36); Mean Corpuscular Hemoglobin 31.1 PG (26-34); Mean Corpuscular Volume 89.7 fL (80-100); Platelet Count 249 X10^3/uL (150-400); Red Blood Cell Count 4.17 X10^6/uL (4.5-5.9); Red Cell Distribution Width 12.8 % (11.6-14.8); White Blood Cell Count 8.1 X10^3/uL (4.5-11.0)
[2023-05-12 14:16] LABS: Reticulocyte Count, Percent 0.9 % (0.9-2.6)
[2023-05-12 14:36] LABS: BUN Creatinine Ratio 21.6 (6-22); Blood Urea Nitrogen 29 mg/dL (9-20); Calcium 9.4 mg/dL (8.4-10.2); Carbon Dioxide 32 mmol/L (22-32); Chloride 100 mmol/L (98-107); Estimated Glomerular Filt Rate 56 mL/min (>60); Glucose 114 mg/dL (80-110); HEMOLYSIS < 15 (0-50); Sodium 139 mmol/L (137-145)
[2023-05-12 14:37] LABS: HEMOLYSIS < 15 (0-50); Iron 134 ug/dL (49-181)
[2023-05-12 14:38] LABS: Neutrophils Absolute Manual 6156 /uL (3000-5900); Total Cells Counted 100
[2023-05-12 14:39] LABS: RBC Morphology Normal Morphology
[2023-05-12 14:49] LABS: Percent Iron Saturation 43 % (20-50); Total Iron Binding Capacity 314 ug/dL (261-462); Transferrin 211 mg/dL (206-381)
[2023-05-12 15:07] LABS: Ferritin 153 ng/mL (18-464)
[2023-05-12 16:20] LABS: Creatinine Urine Random 140.1 mg/dL
[2023-05-12 16:24] LABS: Microalbumi Creatinin Ratio Ur 5.7 ug/mg CR (<30); Microalbumin Urine Random 0.8 mg/dL (0-1.6)
== END ==
PROVIDERS: PCP Family Medicine; Referring Provider Family Medicine; Visit Provider Family Medicine
DX: D64.9 Anemia, unspecified (principal); N28.9 Disorder of kidney and ureter, unspecified
CPT/HCPCS: 36415; 80048; 82043; 82570; 82728; 83540; 83550; 85025; 85045

== ENCOUNTER → 2023-07-02 08:44 | Outpatient (CLI) | payer MEDICARE, OTHER, SELFPAY ==
[2023-07-02 10:44] LABS: BUN Creatinine Ratio 19.2 (6-22); Blood Urea Nitrogen 20 mg/dL (9-20); Carbon Dioxide 29 mmol/L (22-32); Chloride 101 mmol/L (98-107); Cholesterol 139 mg/dL (140-199); Estimated Glomerular Filt Rate > 60 mL/min (>60); Glucose 94 mg/dL (80-110); HDL Cholesterol 43 mg/dL (40-60); HEMOLYSIS < 15 (0-50); LDL Cholesterol Calculated 74 mg/dL (<100); Potassium 3.5 mmol/L (3.4-5.1); Sodium 137 mmol/L (137-145); Triglycerides 109 mg/dL (35-150)
== END ==
PROVIDERS: PCP Family Medicine; Referring Provider Family Medicine; Visit Provider Family Medicine
DX: E78.5 Hyperlipidemia, unspecified (principal); E87.6 Hypokalemia; N28.9 Disorder of kidney and ureter, unspecified
CPT/HCPCS: 36415; 80048; 80061

== ENCOUNTER → 2023-09-09 12:30 | Outpatient (CLI) | payer MEDICARE, OTHER, SELFPAY ==
[2023-09-09 13:44] LABS: Blood Urea Nitrogen 30 mg/dL (9-20); Calcium 9.6 mg/dL (8.4-10.2); Carbon Dioxide 28 mmol/L (22-32); Chloride 99 mmol/L (98-107); Estimated Glomerular Filt Rate > 60 mL/min (>60); Glucose 104 mg/dL (80-110); HEMOLYSIS < 15 (0-50); Sodium 137 mmol/L (137-145)
== END ==
PROVIDERS: PCP Family Medicine; Referring Provider Internal Medicine; Visit Provider Internal Medicine
DX: I10 Essential (primary) hypertension (principal)
CPT/HCPCS: 36415; 80048

== ENCOUNTER 2023-09-21 09:57 | Emergency (ER) | payer MEDICARE, OTHER, SELFPAY ==
[2023-09-21] VITALS (15 sets, daily range): BP systolic 153–182; BP diastolic 77–90; PULSE 62–76; RESP 12–26; TEMP 36.7–37.2; O2SAT 94–98; BMI 29.0
--- NOTE | 2023-09-21 10:15 | DI.RAD.S_ITS ---
PROCEDURE: XR CHEST 1V INDICATIONS: chest pain TECHNIQUE: One view of the chest was acquired. COMPARISON: [facility], CR, XR CHEST 1V, 02/26/2023, 23:31. [facility], CR, XR CHEST 1V, 01/31/2021, 20:08. FINDINGS: Surgical changes and devices: None. Lungs and pleura: Low lung volumes. No dense consolidation or pleural effusion. Mediastinum: Heart size is borderline. Bones and chest wall: There are degenerative changes. IMPRESSION: No acute radiographic abnormality on this single view radiograph with low lung volumes. Dictated by: Barron Pinto M.D. on 09/21/2023 at 10:52 Approved by: Barron Pinto M.D. on 09/21/2023 at 10:53
[2023-09-21 10:25] LABS: INR 1.2 (0.9-1.3); Prothrombin Time 13.2 SECONDS (10.1-12.7)
[2023-09-21] MEDS: ASPIRIN 81 MG CHEW TAB 243 MG PO (10:26)
[2023-09-21 10:28] LABS: Add Manual Diff / Slide Review NO; Basophils Absolute Auto 100 /uL (0-100); Basophils Percent Auto 0.5 % (0-2); Eosinophils Absolute Auto 100 /uL (0-450); Eosinophils Percent Auto 0.6 % (2-4); Hematocrit 39.3 % (41-53); Hemoglobin 13.7 g/dL (13.5-17.5); Lymphocytes Absolute Auto 1900 /uL (1100-4500); Lymphocytes Percent Auto 14.9 % (25-40); Mean Corpuscular HGB Conc 34.8 % (30-36); Mean Corpuscular Hemoglobin 30.8 PG (26-34); Mean Corpuscular Volume 88.6 fL (80-100); Monocytes Absolute Auto 1200 /uL (0-900); Monocytes Percent Auto 9.3 % (3-14); Neutrophils Absolute Auto 9600 /uL (1500-7000); Neutrophils Percent Auto 74.7 % (50-75); PTT Partial Thromboplastin Tim 32 SECONDS (26-36); Platelet Count 237 X10^3/uL (150-400); Red Blood Cell Count 4.44 X10^6/uL (4.5-5.9); Red Cell Distribution Width 12.9 % (11.6-14.8); White Blood Cell Count 12.9 X10^3/uL (4.5-11.0)
[2023-09-21 10:30] LABS: Alanine Aminotransferase 25 IU/L (<50); Albumin 4.3 g/dL (3.5-5.0); Albumin Globulin Ratio 1.4 (1.0-2.8); Alkaline Phosphatase 78 U/L (38-126); Aspartate Aminotransferase 23 IU/L (17-59); BUN Creatinine Ratio 25.2 (6-22); Bilirubin Total 0.5 mg/dL (0.2-1.3); Blood Urea Nitrogen 28 mg/dL (9-20); Calcium 9.4 mg/dL (8.4-10.2); Carbon Dioxide 32 mmol/L (22-32); Chloride 100 mmol/L (98-107); Creatine Kinase 55 U/L (55-170); Estimated Glomerular Filt Rate > 60 mL/min (>60); Globulin 3.1 g/dL (1.7-4.1); Glucose 132 mg/dL (80-110); HEMOLYSIS < 15 (0-50); Lipase 60 U/L (23-300); Magnesium 1.8 mg/dL (1.6-2.3); Potassium 2.9 mmol/L (3.4-5.1); Sodium 138 mmol/L (137-145); Total Protein 7.4 g/dL (6.3-8.2)
[2023-09-21 10:39] LABS: NT-proBNP (BNP-Adult 18+) 65 pg/mL (<125)
[2023-09-21 10:42] LABS: Troponin I < 0.012 ng/mL (0.01-0.034)
--- NOTE | 2023-09-21 12:22 | ED_ITS ---
HPI - Chest Pain General Chief Complaint: Chest Pain Stated Complaint: DR robertson T-1 N/felt like Heart attack Time Seen by Provider: 09/21/23 11:38 Source: patient Mode of arrival: Ambulatory Limitations: no limitations History of Present Illness HPI narrative: 73-year-old male with history of coronary artery disease with prior PCI, hypertension, dyslipidemia, GERD, prior prostate cancer with prostatectomy who presents with an episode at 7:00 p.m. last night 09/20/2023. Patient states he had a brat nauseous sweaty diaphoretic they last about 5 minutes. 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 Denies any issues with bowel movements he was constipated last week but stooling regularly since then. No urinary changes. No new swelling in extremities. He did have a heart attack in the past he states at that time he was very sweaty and nauseated but he also had significant chest pain/pressure at that time. Patient states blood pressure was 120/70 after the episode. He called his director equipment this morning who recommended he come for evaluation. Patient states he has had some issues with his potassium being low they have been trying to adjust his medications it was more normal when they stopped his HCTZ but his blood pressure was not well controlled so they restarted it. He is currently on aspirin daily, omeprazole, HCTZ/losartan, potassium which was recently increased to 20 mEq daily, gabapentin, atorvastatin, amlodipine. Patient has had 3 cardiac stents in the past. Prostatectomy for prostate cancer 14 years ago. Had stress test with echo, possibly new med a year ago. Has allergies to seafood and dust. No tobacco, alcohol or illicit. His primary care is Dr. Mckeon. His director equipment is Dr. Adame in [place]. Related Data Home Medications Medication Instructions Recorded Confirmed aspirin 81 mg tablet,delayed 81 mg PO DAILY 04/05/19 03/13/23 release Previous Rx's Medication Instructions Recorded potassium chloride 10 mEq 10 meq PO DAILY low potassium #90 03/15/23 tablet,extended release(part/cryst) tabs metoprolol tartrate 25 mg tablet See Rx Instructions .Route 05/25/23 .COMPLEX #45 tabs amlodipine 10 mg tablet See Rx Instructions .Route 07/10/23 .COMPLEX #90 tabs atorvastatin 40 mg tablet 40 mg PO QPM #90 tabs 07/10/23 gabapentin 300 mg capsule 300 mg PO TID PRN pain #90 caps 07/10/23 losartan 100 mg tablet 100 mg PO DAILY blood pressure #90 07/10/23 tabs omeprazole 40 mg capsule,delayed See Rx Instructions .Route 07/10/23 release .COMPLEX #90 caps fluorouracil 5 % topical cream 1 applic topical BID 4 weeks #40 09/01/23 grams Allergies Allergy/AdvReac Type Severity Reaction Status Date / Time shellfish derived Allergy Severe Anaphylaxis Verified 03/13/23 09:52 [SHELLFISH DERIVED] Review of Systems Review of Systems ROS Unobtainable: All systems reviewed & are unremarkable except as noted in HPI and below Patient History Medical History Chronic low back pain Hyperlipidemia STEMI (ST elevation myocardial infarction) Surgical History History of prostatectomy H/O angioplasty Family History Father Age: 98 Heart disease High cholesterol Mental health problem Stroke Mother Age: 95 Heart disease Hypertension High cholesterol Brother Cancer Sister Cancer Social History household members: spouse Smoking Status: Former smoker alcohol intake: former Smoking Status: Former smoker alcohol intake frequency: holidays/special occasions only Substance Use Type: does not use Exam Narrative Exam Narrative: GENERAL: Alert and oriented x three, well-appearing male in no acute distress. HEENT: Head normocephalic, atraumatic, EOMI, pupils reactive, face symmetric, moist mucous membranes NECK: Supple, full range of motion CARDIOVASCULAR: Regular rate and rhythm without murmurs, rubs or gallops. No JVD. No swelling bilateral lower extremities. RESPIRATORY: Breath sounds equal bilaterally, no wheezes rales or rhonchi. ABDOMEN: Soft, nontender. Normoactive bowel sounds all 4 quadrants. No guarding or rebound, rigidity, no mass : No CVA tenderness EXTREMITIES: Normal range of motion, no clubbing or edema. Neurovascularly intact NEUROLOGICAL: Cranial nerves II through XII grossly intact. Moving all extremities SKIN: Warm, dry, no petechiae, no rashes or lesions. Initial Vital Signs Initial Vital Signs: Vital Signs Temperature 98.9 F 09/21/23 10:16 Pulse Rate 76 09/21/23 10:16 Respiratory Rate 18 09/21/23 10:16 Blood Pressure 182/89 H 09/21/23 10:16 Pulse Oximetry 96 09/21/23 10:16 Oxygen Delivery Method Room Air 09/21/23 10:16 Course Orders Ordered: ED Orders 09/21/23 10:11 BNP [NT-proBNP (BNP-Adult 18+)] Stat Complete Blood Count AUTO DIFF Stat Comprehensive Metabolic Panel Stat Lipase Stat Magnesium Stat PTT Partial Thromboplastin Leon Stat Prothrombin Time INR Stat Troponin & CK Cardiac Panel Stat 09/21/23 10:15 XR chest 1V Stat EKG-12 Lead Stat 09/21/23 12:50 Trop I [Troponin I] Stat 09/21/23 12:52 COVID19 -Nasal RAPID Stat 09/21/23 12:53 EKG-12 Lead Routine Discontinued Medications Aspirin (Aspirin 81 Mg Chew Tab) 324 mg PO NOW ONE Stop: 09/21/23 10:16 Last Admin: 09/21/23 10:23 Dose: Not Given Documented By: KF Aspirin (Aspirin 81 Mg Chew Tab) 243 mg PO NOW ONE Stop: 09/21/23 10:22 Last Admin: 09/21/23 10:26 Dose: 243 mg Documented By: KF Potassium Chloride (Potassium Chloride 20 Meq/15 Ml Udc) 40 meq PO NOW ONE Stop: 09/21/23 12:44 Last Admin: 09/21/23 13:19 Dose: Not Given Documented By: RB Potassium Chloride (Potassium Chloride 20 Meq Tab) 40 meq PO NOW ONE Stop: 09/21/23 13:14 Last Admin: 09/21/23 13:19 Dose: 40 meq Documented By: RB Vital Signs Vital signs: Vital Signs - 8 hr 09/21/23 10:43 09/21/23 10:47 09/21/23 10:48 Temperature Pulse Rate 67 66 Respiratory Rate 18 Blood Pressure 167/81 H 164/90 H Pulse Oximetry 97 97 Oxygen Delivery Method Room Air 09/21/23 10:48 09/21/23 11:00 09/21/23 11:30 Temperature Pulse Rate 67 66 67 Respiratory Rate 12 13 Blood Pressure Pulse Oximetry 98 95 96 Oxygen Delivery Method 09/21/23 12:04 09/21/23 12:30 09/21/23 13:00 Temperature Pulse Rate 65 65 65 Respiratory Rate 26 H 17 15 Blood Pressure Pulse Oximetry 96 96 95 Oxygen Delivery Method 09/21/23 13:21 09/21/23 13:21 09/21/23 13:30 Temperature Pulse Rate 67 Respiratory Rate 20 Blood Pressure 153/83 H 155/84 H Pulse Oximetry 96 Oxygen Delivery Method 09/21/23 13:30 09/21/23 14:06 09/21/23 14:08 Temperature Pulse Rate 62 66 Respiratory Rate 17 Blood Pressure 159/77 H Pulse Oximetry 94 97 Oxygen Delivery Method 09/21/23 14:08 09/21/23 14:30 09/21/23 14:30 Temperature Pulse Rate 63 65 Respiratory Rate 12 18 Blood Pressure 176/88 H Pulse Oximetry 97 96 Oxygen Delivery Method 09/21/23 15:00 Temperature 98.1 F Pulse Rate Respiratory Rate Blood Pressure Pulse Oximetry Oxygen Delivery Method MDM - Chest Pain Lab Data 09/21/23 10:11 09/21/23 10:11 Labs: Lab Results 09/21/23 09/21/23 09/21/23 Range/Units 10:11 12:50 12:52 WBC 12.9 H (4.5-11.0) X10^3/uL RBC 4.44 L (4.5-5.9) X10^6/uL Hgb 13.7 (13.5-17.5) g/dL Hct 39.3 L (41-53) % MCV 88.6 (80-100) fL MCH 30.8 (26-34) PG MCHC 34.8 (30-36) % RDW 12.9 (11.6-14.8) % Plt Count 237 (150-400) X10^3/uL Neut % (Auto) 74.7 (50-75) % Lymph % (Auto) 14.9 L (25-40) % [place] % (Auto) 9.3 (3-14) % Eos % (Auto) 0.6 L (2-4) % Baso % (Auto) 0.5 (0-2) % Neut # (Auto) 9600 H (8158-4449) /uL Lymph # (Auto) 1900 (0971-0858) /uL [place] # (Auto) 1200 H (0-900) /uL Eos # (Auto) 100 (0-450) /uL Baso # (Auto) 100 (0-100) /uL PT 13.2 H (10.1-12.7) SECONDS INR 1.2 (0.9-1.3) APTT 32 (26-36) SECONDS Sodium 138 (137-145) mmol/L Potassium 2.9 L (3.4-5.1) mmol/L Chloride 100 (98-107) mmol/L Carbon Dioxide 32 (22-32) mmol/L BUN 28 H (9-20) mg/dL Creatinine 1.11 (0.66-1.25) mg/dL Estimated GFR > 60 (>60) mL/min BUN/Creatinine Ratio 25.2 H (6-22) Glucose 132 H (80-110) mg/dL Calcium 9.4 (8.4-10.2) mg/dL Magnesium 1.8 (1.6-2.3) mg/dL Total Bilirubin 0.5 (0.2-1.3) mg/dL AST 23 (17-59) IU/L ALT 25 (<50) IU/L Alkaline Phosphatase 78 (38-126) U/L Total Creatine Kinase 55 (55-170) U/L Troponin I < 0.012 < 0.012 (0.01-0.034) ng/mL NT-Pro-B Natriuret Pep 65 (<125) pg/mL Total Protein 7.4 (6.3-8.2) g/dL Albumin 4.3 (3.5-5.0) g/dL Globulin 3.1 (1.7-4.1) g/dL Albumin/Globulin Ratio 1.4 (1.0-2.8) Lipase 60 (23-300) U/L SARS-CoV-2 (PCR) Negative (Negative) Urine Dip Bedside Urine Glucose Negative Bedside Urine Bilirubin - Negative Bedside Urine Ketone - Negative Urine Specific [place] 1.010 Bedside Urine Occult Blood - Negative Bedside Urine pH 7.5 Bedside Urine Protein - Negative Bedside Urine Urobilinogen - Negative Bedside Urine Nitrite - Negative Bedside Urine Leukocytes - Negative Esterase Imaging Data Chest x-ray: Radiologist's Impression: Flaco Brown??73??M??1950 ? Allergy/Adv: shellfish derived Close Chest X-Ray (Signed) Barron Pinto - 09/21/23 Chest X-Ray (Signed) MaximilianRoger - 02/26/23 Hand X-Ray (Signed) Sly Marie - 12/24/21 Telemetry Strips 11/28/21 Lumbar Spine MRI (Signed) Cyrus Isaac - 06/10/21 Lumbar Spine X-Ray (Signed) Leah Jackson - 02/06/21 Cervical Spine X-Ray (Cancelled) 02/06/21 Chest X-Ray (Signed) Jama Michael - 01/31/21 [place] Ultrasound (Signed) Cyrus Isaac - 01/14/[address] (Signed) Jamila Garcia - 05/11/19 Abdomen Ultrasound (Signed) Blayne Jaime - 05/05/19 Chest X-Ray (Signed) Roya Berg - 04/05/19 Launch?Image [address] [address] XRay Report Signed Patient: Flaco Brown MR#: [id number] : 1950 Acct:[id number] Age/Sex: 73 / M Date of Service: 09/21/23 Loc: ED Accession Number: [id number] Procedure: XR chest 1V Ordering Provider: Candie Servin D.O. PROCEDURE: XR CHEST 1V INDICATIONS: chest pain TECHNIQUE: One view of the chest was acquired. COMPARISON: [facility], , XR CHEST 1V, 02/26/2023, 23:31. [facility], , XR CHEST 1V, 01/31/2021, 20:08. FINDINGS: Surgical changes and devices: None. Lungs and pleura: Low lung volumes. No dense consolidation or pleural effusion. Mediastinum: Heart size is borderline. Bones and chest wall: There are degenerative changes. IMPRESSION: No acute radiographic abnormality on this single view radiograph with low lung volumes. Dictated by: Barron Pinto M.D. on 09/21/2023 at 10:52 Approved by: Barron Pinto M.D. on 09/21/2023 at 10:53 ECG Data Attestation: I personally reviewed and interpreted this ECG as follows: Prior ECG tracings: available for review Interpretation: Sinus rhythm rate of 68 NE 170 QRS of 102 and QTC of 416, no acute ST elevation depression noted. Patient has prior from 02/27/[address] depression V4 5 6 may be new. EKG2. Sinus rhythm rate of 60 6p are 168 QRS of [address]TC [address] No acute [address] elevation depression no depression appreciated in lateral leads. MDM Narrative Medical decision making narrative: 73-year-old male with no chest pain or pressure shortness of breath but an episode of nausea diaphoresis ?he looked sow for about 5 minutes last night over 15 hours ago. Patient workup shows normal CBC potassium is 2.9 he states he has had some similar episodes when it has been low. This is replaced orally, patient has noted that he has been having some low potassium they think it maybe related to his HCTZ which was stopped for some period of time but had difficulty with blood pressure control despite adjusting medications and was restarted in the last 2 weeks. He is on supplementation and was just increased to 20 mEq daily last week. LFTs are negative troponins negative greater than 12 hours but will repeat a secondary. BNP is negative with a negative chest x-ray. EKG shows some possible depression lateral leads but last EKGs from February of 2023. This was repeated along with troponin and shows no acute change. EKG does not show any depression on repeat. Patient has not had any episodes today. Consult to Cardiology, Anisha, Dr. Josue: Reviewed all patient's findings, EKG change, troponin, potassium in his medication changes. Recommends to continue on his current medications but have him double his potassium. He can follow up primary care for blood pressure potassium control but does recommend follow up with Dr. Ribera but felt appropriate for discharge home. Discharge Plan Departure Patient Disposition: Home Clinical Impression: Hypokalemia Activity Restrictions/Additional Instructions: Follow-up with your director equipment for rechecked. Your potassium was low today, please increase to 40 mEq daily and follow up with either primary care or Cardiology to have your electrolytes rechecked. You may continue your current blood pressure medications. I did speak with the director equipment he prefers that we continue them and they can adjust them as needed. Please return for recurrent episodes, new chest pain, shortness of breath, lightheadedness or passing out, diaphoresis or sweatiness, persistent vomiting, black or bloody stools or other new or concerning changes. Prescriptions: No Action potassium chloride 10 mEq tablet,ER particles/crystals 10 meq PO DAILY Qty: 90 3RF metoprolol tartrate 25 mg tablet See Rx Instructions .ROUTE .COMPLEX Qty: 45 3RF Dose Instruction: TAKE 1/2 tablet BY MOUTH DAILY with food FOR 90 days Rx Instructions: TAKE 1/2 tablet BY MOUTH DAILY with food FOR 90 days fluorouracil 5 % cream 1 applic topical BID 28 Days Qty: 40 1RF Rx Instructions: apply topical twice a day for up to 4 weeks for trement of actinic keratosis. amlodipine 10 mg tablet See Rx Instructions .ROUTE .COMPLEX Qty: 90 3RF Dose Instruction: TAKE ONE TABLET BY MOUTH ONE TIME DAILY Rx Instructions: TAKE ONE TABLET BY MOUTH ONE TIME DAILY atorvastatin 40 mg tablet 40 mg PO QPM Qty: 90 3RF gabapentin 300 mg capsule 300 mg PO TID PRN (Reason: pain) Qty: 90 11RF losartan 100 mg tablet 100 mg PO DAILY Qty: 90 3RF omeprazole 40 mg capsule,delayed release(DR/EC) See Rx Instructions .ROUTE .COMPLEX Qty: 90 3RF Dose Instruction: Take 1 capsule by mouth 30 minutes before morning meal once a day for 90 days Rx Instructions: Take 1 capsule by mouth 30 minutes before morning meal once a day for 90 days aspirin 81 mg Tablet,Delayed Release (Dr/Ec) 81 mg PO DAILY Referrals: Betty Mckeon DO [Primary Care Provider] - Stand Alone Forms: Patient Portal/API
[2023-09-21 13:12] LABS: COVID19 -Nasal RAPID Negative (Negative)
[2023-09-21 13:19] LABS: Troponin I < 0.012 ng/mL (0.01-0.034)
[2023-09-21] MEDS: POTASSIUM CHLORIDE 20 MEQ TAB 40 MEQ PO (13:19)
== END 2023-09-21 15:00 | disposition home or self-care (01) ==
PROVIDERS: Emergency Provider Emergency Medicine; PCP Family Medicine
DX: E87.6 Hypokalemia (principal); R07.9 Chest pain, unspecified; Z20.822 Contact with and (suspected) exposure to COVID-19
CPT/HCPCS: 36415; 71045; 80053; 81003; 82550; 83690; 83735; 83880; 84484; 85025; 85610; 85730; 87635; 93005; 99284; C9803

== ENCOUNTER → 2023-10-02 17:01 | Outpatient (CLI) | payer MEDICARE, OTHER, SELFPAY ==
[2023-10-02 18:13] LABS: BUN Creatinine Ratio 28.9 (6-22); Blood Urea Nitrogen 28 mg/dL (9-20); Calcium 9.3 mg/dL (8.4-10.2); Carbon Dioxide 29 mmol/L (22-32); Chloride 99 mmol/L (98-107); Estimated Glomerular Filt Rate > 60 mL/min (>60); Glucose 96 mg/dL (80-110); HEMOLYSIS < 15 (0-50); Potassium 3.1 mmol/L (3.4-5.1); Sodium 135 mmol/L (137-145)
== END ==
PROVIDERS: PCP Family Medicine; Referring Provider Family Medicine; Visit Provider Family Medicine
DX: E87.6 Hypokalemia (principal)
CPT/HCPCS: 36415; 80048

== ENCOUNTER → 2023-12-11 09:38 | Outpatient (CLI) | payer MEDICARE, OTHER, SELFPAY ==
[2023-12-11 11:02] LABS: Magnesium 1.7 mg/dL (1.6-2.3)
[2023-12-11 15:21] LABS: Potassium Urine Random 102.4 mmol/L
== END ==
LOC: LAB 09:39
PROVIDERS: PCP Family Medicine; Referring Provider Family Medicine; Visit Provider Family Medicine
DX: E87.6 Hypokalemia (principal)
CPT/HCPCS: 36415; 83735; 84133

== ENCOUNTER → 2024-03-01 08:34 | Outpatient (CLI) | payer MEDICARE, OTHER, SELFPAY ==
[2024-03-01 09:33] LABS: Add Manual Diff / Slide Review NO; Basophils Absolute Auto 0 /uL (0-100); Basophils Percent Auto 0.4 % (0-2); Eosinophils Absolute Auto 100 /uL (0-450); Eosinophils Percent Auto 1.7 % (2-4); Hematocrit 38.7 % (41-53); Hemoglobin 13.4 g/dL (13.5-17.5); Lymphocytes Absolute Auto 1600 /uL (1100-4500); Lymphocytes Percent Auto 18.5 % (25-40); Mean Corpuscular HGB Conc 34.6 % (30-36); Mean Corpuscular Hemoglobin 31.3 PG (26-34); Mean Corpuscular Volume 90.4 fL (80-100); Monocytes Absolute Auto 1000 /uL (0-900); Monocytes Percent Auto 11.3 % (3-14); Neutrophils Absolute Auto 5700 /uL (1500-7000); Neutrophils Percent Auto 68.1 % (50-75); Platelet Count 218 X10^3/uL (150-400); Red Blood Cell Count 4.28 X10^6/uL (4.5-5.9); White Blood Cell Count 8.4 X10^3/uL (4.5-11.0)
[2024-03-01 10:23] LABS: Alanine Aminotransferase 20 IU/L (<50); Albumin 4.1 g/dL (3.5-5.0); Albumin Globulin Ratio 1.7 (1.0-2.8); Alkaline Phosphatase 81 U/L (38-126); Aspartate Aminotransferase 19 IU/L (17-59); BUN Creatinine Ratio 22.2 (6-22); Bilirubin Total 0.9 mg/dL (0.2-1.3); Blood Urea Nitrogen 24 mg/dL (9-20); Calcium 9.3 mg/dL (8.4-10.2); Carbon Dioxide 33 mmol/L (22-32); Chloride 102 mmol/L (98-107); Cholesterol 160 mg/dL (140-199); Estimated Glomerular Filt Rate > 60 mL/min (>60); Globulin 2.4 g/dL (1.7-4.1); Glucose 99 mg/dL (80-110); HDL Cholesterol 48 mg/dL (40-60); HEMOLYSIS < 15 (0-50); LDL Cholesterol Calculated 88 mg/dL (<100); Potassium 3.7 mmol/L (3.4-5.1); Sodium 139 mmol/L (137-145); Total Protein 6.5 g/dL (6.3-8.2); Triglycerides 119 mg/dL (35-150)
[2024-03-02 08:32] LABS: PSA Ultrasensitive <0.006 ng/mL (0.000-4.000)
== END ==
PROVIDERS: PCP Family Medicine; Referring Provider Family Medicine; Visit Provider Family Medicine
DX: E78.5 Hyperlipidemia, unspecified (principal); Z85.46 Personal history of malignant neoplasm of prostate; I10 Essential (primary) hypertension; Z90.79 Acquired absence of other genital organ(s); Z85.828 Personal history of other malignant neoplasm of skin
CPT/HCPCS: 36415; 80053; 80061; 84153; 85025

== ENCOUNTER → 2024-09-02 07:23 | Outpatient (CLI) | payer MEDICARE, OTHER, SELFPAY ==
--- NOTE | 2024-09-02 07:25 | DI.US.S_ITS ---
PROCEDURE: US ABD AORTA ANEURYSM SCREEN INDICATIONS: screening TECHNIQUE: Real-time scanning was performed of the aorta and proximal common iliac arteries, with image documentation. COMPARISON: None. FINDINGS: Aorta: Proximal aorta not visualized due to bowel gas. The rest of the aorta aorta is normal in caliber throughout its length. Iliacs: Proximal common iliac arteries are normal in caliber. IMPRESSION: Somewhat limited study with no evidence of abdominal aortic aneurysm Dictated by: Jeronimo William M.D. on 09/02/2024 at 12:21 Approved by: Jeronimo William M.D. on 09/02/2024 at 12:42
[2024-09-02 09:00] LABS: BUN Creatinine Ratio 18.8 (6-22); Blood Urea Nitrogen 22 mg/dL (9-20); Carbon Dioxide 30 mmol/L (22-32); Chloride 102 mmol/L (98-107); Cholesterol 158 mg/dL (140-199); Estimated Glomerular Filt Rate > 60 mL/min (>60); Glucose 104 mg/dL (80-110); HDL Cholesterol 49 mg/dL (40-60); HEMOLYSIS < 15 (0-50); LDL Cholesterol Calculated 93 mg/dL (<100); Potassium 3.2 mmol/L (3.4-5.1); Sodium 140 mmol/L (137-145); Triglycerides 81 mg/dL (35-150)
[2024-09-02 10:10] LABS: Hep C Virus Ab w/Reflex Quant NEGATIVE s/c (NEGATIVE)
== END ==
PROVIDERS: PCP Family Medicine; Referring Provider Family Medicine; Visit Provider Family Medicine
DX: Z13.6 Encounter for screening for cardiovascular disorders (principal); E78.5 Hyperlipidemia, unspecified; E87.6 Hypokalemia; Z11.59 Encounter for screening for other viral diseases
CPT/HCPCS: 36415; 76706; 80048; 80061; 86803

== ENCOUNTER → 2024-09-09 10:13 | Outpatient (CLI) | payer MEDICARE, OTHER, SELFPAY ==
[2024-09-09 11:47] LABS: Hematocrit 40.9 % (41-53); Mean Corpuscular HGB Conc 34.3 % (30-36); Mean Corpuscular Hemoglobin 30.8 PG (26-34); Mean Corpuscular Volume 89.7 fL (80-100); Platelet Count 252 X10^3/uL (150-400); Red Blood Cell Count 4.56 X10^6/uL (4.5-5.9); White Blood Cell Count 8.3 X10^3/uL (4.5-11.0)
[2024-09-09 12:09] LABS: Magnesium 1.7 mg/dL (1.6-2.3)
[2024-09-09 12:38] LABS: TSH w/ Reflex to FT4 2.55 uIU/mL (0.47-4.68)
== END ==
PROVIDERS: PCP Family Medicine; Referring Provider Family Medicine; Visit Provider Family Medicine
DX: R53.82 Chronic fatigue, unspecified (principal); E87.6 Hypokalemia; F41.1 Generalized anxiety disorder; G47.9 Sleep disorder, unspecified; Z98.62 Peripheral vascular angioplasty status; E78.5 Hyperlipidemia, unspecified
CPT/HCPCS: 36415; 83735; 84443; 85027

== ENCOUNTER 2024-09-15 10:26 | Emergency (ER) | payer MEDICARE, OTHER, SELFPAY ==
[2024-09-15] VITALS (14 sets, daily range): BP systolic 144–173; BP diastolic 71–89; PULSE 66–93; RESP 11–22; TEMP 36.7; O2SAT 93–96; BMI 30.3
--- NOTE | 2024-09-15 10:37 | EKG_ITS ---
[address] [address] Test Date: 2024-09-15 Pat Name: Flaco Brown Department: Room: Gender: Male [employer]: JON : 1950 Requested By: Order Number: [id number] Reading MD: Damir Enrique Measurements Intervals [place] Rate: 88 P: 57 MI: 164 QRS: 34 QRSD: 96 T: 0 QT: 354 QTc: 428 Interpretive Statements Normal sinus rhythm Inferior infarct , age undetermined Cannot rule out Anterior infarct , age undetermined Electronically Signed On 09-15-2024 17:09:17 PDT by Damir Enrique
--- NOTE | 2024-09-15 10:37 | DI.RAD.S_ITS ---
PROCEDURE: XR CHEST 1V INDICATIONS: chest pain TECHNIQUE: One view of the chest was acquired. COMPARISON: None. FINDINGS: Surgical changes and devices: None. Lungs and pleura: Lungs are clear. No pleural effusions or pneumothorax. Mediastinum: Mediastinal contours appear normal. Heart size is normal. Bones and chest wall: No suspicious bony lesions. Overlying soft tissues appear unremarkable. IMPRESSION: No acute cardiopulmonary abnormality is seen. Dictated by: Tomi Valderrama M.D. on 09/15/2024 at 10:53 Approved by: Tomi Valderrama M.D. on 09/15/2024 at 10:53
[2024-09-15 10:47] LABS: Add Manual Diff / Slide Review NO; Basophils Absolute Auto 0 /uL (0-100); Basophils Percent Auto 0.2 % (0-2); Eosinophils Absolute Auto 0 /uL (0-450); Eosinophils Percent Auto 0.2 % (2-4); Hematocrit 39.7 % (41-53); Lymphocytes Absolute Auto 1600 /uL (1100-4500); Lymphocytes Percent Auto 15.9 % (25-40); Mean Corpuscular HGB Conc 35.2 % (30-36); Mean Corpuscular Hemoglobin 31.3 PG (26-34); Mean Corpuscular Volume 88.9 fL (80-100); Monocytes Absolute Auto 800 /uL (0-900); Monocytes Percent Auto 7.6 % (3-14); Neutrophils Absolute Auto 7600 /uL (1500-7000); Neutrophils Percent Auto 76.1 % (50-75); Platelet Count 282 X10^3/uL (150-400); Red Blood Cell Count 4.47 X10^6/uL (4.5-5.9); Red Cell Distribution Width 13.4 % (11.6-14.8)
[2024-09-15 10:53] LABS: Prothrombin Time 11.3 SECONDS (9.4-12.5)
[2024-09-15 10:56] LABS: PTT Partial Thromboplastin Tim 35 SECONDS (25.1-36.5)
[2024-09-15 10:59] LABS: Alanine Aminotransferase 31 IU/L (<50); Albumin 4.6 g/dL (3.5-5.0); Albumin Globulin Ratio 1.5 (1.0-2.8); Alkaline Phosphatase 84 U/L (38-126); Aspartate Aminotransferase 29 IU/L (17-59); BUN Creatinine Ratio 24.8 (6-22); Bilirubin Total 0.5 mg/dL (0.2-1.3); Blood Urea Nitrogen 29 mg/dL (9-20); Calcium 9.5 mg/dL (8.4-10.2); Carbon Dioxide 23 mmol/L (22-32); Chloride 102 mmol/L (98-107); Creatine Kinase 70 U/L (55-170); Estimated Glomerular Filt Rate > 60 mL/min (>60); Glucose 146 mg/dL (80-110); HEMOLYSIS < 15 (0-50); Lipase 82 U/L (23-300); Magnesium 1.7 mg/dL (1.6-2.3); Sodium 137 mmol/L (137-145); Total Protein 7.6 g/dL (6.3-8.2)
[2024-09-15 11:11] LABS: NT-proBNP (BNP-Adult 18+) 43 pg/mL (<125); Troponin I < 0.012 ng/mL (0.01-0.034)
--- NOTE | 2024-09-15 14:40 | ED.GENADULT ---
HPI - General Adult General Chief complaint: Shortness of Breath/Dyspnea Stated complaint: palpitations, nausea, sob Time Seen by Provider: 09/15/24 10:38 Source: patient Mode of arrival: Ambulatory History of Present Illness HPI narrative: 74-year-old gentleman with a history of prostate cancer, coronary artery disease post 3 stents, hypertension, hyperlipidemia presents with shortness of breath, nausea and palpitations over the last 2 days. He also notices increasing bruising over the last number of weeks. He states he has been unwell for months, his primary care physician started him on Prozac earlier this week. States that he has had normal soft bowel movements without any blood or black stool appreciated. He describes no fevers, cough, headaches no abdominal pain no lower extremity Related Data Home Medications Medication Instructions Recorded Confirmed aspirin 81 mg tablet,delayed 81 mg PO DAILY 04/05/19 09/09/24 release Previous Rx's Medication Instructions Recorded atorvastatin 40 mg tablet 40 mg PO QPM #90 tabs 08/18/24 gabapentin 300 mg capsule 300 mg PO TID PRN pain #90 caps 08/18/24 losartan 100 mg tablet 100 mg PO DAILY blood pressure #90 08/18/24 tabs omeprazole 40 mg capsule,delayed See Rx Instructions .Route 08/18/24 release .COMPLEX #90 caps amlodipine 10 mg tablet See Rx Instructions .Route 09/09/24 .COMPLEX #90 tabs chlorthalidone 25 mg tablet 25 mg PO DAILY blood pressure #90 09/09/24 tabs fluoxetine 20 mg capsule (Prozac) 20 mg PO DAILY #30 caps 09/09/24 potassium chloride 20 mEq 40 meq (2 x 20 mEq) PO BID #180 09/09/24 tablet,extended release(part/cryst) tabs Allergies Allergy/AdvReac Type Severity Reaction Status Date / Time shellfish derived Allergy Severe Anaphylaxis Verified 09/09/24 09:30 [SHELLFISH DERIVED] grass pollen Allergy Mild Sneezing Verified 09/09/24 09:32 house dust mite Allergy Mild Sneezing Verified 09/09/24 09:32 mold Allergy Mild Sneezing Verified 09/09/24 09:32 Review of Systems Review of Systems Narrative: Pertinent positive and negative findings as per HPI Patient History Medical History BENTLEY (generalized anxiety disorder) Encounter for subsequent annual wellness visit (AWV) in Medicare patient Chronic low back pain Hyperlipidemia STEMI (ST elevation myocardial infarction) Surgical History History of prostatectomy H/O angioplasty Family History Father Age: 99 Heart disease High cholesterol Mental health problem Stroke Mother Age: 96 Heart disease Hypertension High cholesterol Brother Cancer Sister Cancer Social History household members: spouse Smoking Status: Former smoker alcohol intake: former Smoking Status: Former smoker alcohol intake frequency: holidays/special occasions only Substance Use Type: does not use Exam Initial Vital Signs Initial Vital Signs: Vital Signs Pulse Rate 93 H 09/15/24 10:33 Respiratory Rate 15 09/15/24 10:33 Pulse Oximetry 96 09/15/24 10:33 General: Healthy appearing, in no acute distress. Able to give a complete and coherent history. Well-nourished well-developed HEENT: Moist mucous membranes, normal sclera with reactive pupils, Neck: No JVD, supple Respiratory: Lungs are clear to auscultation, no wheezing no rales no rhonchi. Full and symmetrical air movement Cardiac: Regular rate and rhythm no murmurs no bruits Abdomen: Soft, nontender, good bowel tones, no flank pain Skin: Warm and dry, no rashes Neurologic: Grossly neurologically intact with no obvious asymmetries or abnormalities Extremities: No trauma, well perfused Psych: Cooperative, appropriate insight and affect Course Orders Ordered: ED Orders 09/15/24 10:35 Complete Blood Count AUTO DIFF Stat Comprehensive Metabolic Panel Stat Lipase Stat Magnesium Stat NT-proBNP (BNP-Adult 18+) Stat PTT Partial Thromboplastin Leon Stat Prothrombin Time INR Stat Troponin & CK Cardiac Panel Stat 09/15/24 10:37 XR chest 1V Stat EKG-12 Lead Stat Vital Signs Vital signs: Vital Signs - 8 hr 09/15/24 10:33 09/15/24 10:34 09/15/24 10:34 Temperature Pulse Rate 93 H 89 Respiratory Rate 15 20 Blood Pressure 173/83 H Pulse Oximetry 96 96 Oxygen Delivery Method 09/15/24 10:35 09/15/24 11:00 09/15/24 11:00 Temperature 98.1 F Pulse Rate 86 76 Respiratory Rate 18 12 Blood Pressure 173/83 H 163/81 H Pulse Oximetry 95 96 Oxygen Delivery Method Room Air 09/15/24 11:30 09/15/24 11:30 09/15/24 12:03 Temperature Pulse Rate 77 78 Respiratory Rate 15 19 Blood Pressure 162/78 H Pulse Oximetry 95 96 Oxygen Delivery Method 09/15/24 12:04 09/15/24 12:04 09/15/24 12:30 Temperature Pulse Rate 74 72 Respiratory Rate 12 17 Blood Pressure 147/82 H Pulse Oximetry 96 94 Oxygen Delivery Method 09/15/24 12:30 09/15/24 12:50 09/15/24 12:50 Temperature Pulse Rate 79 Respiratory Rate 16 Blood Pressure 152/89 H 163/78 H Pulse Oximetry 96 Oxygen Delivery Method 09/15/24 13:00 09/15/24 13:00 Temperature Pulse Rate 79 Respiratory Rate 22 Blood Pressure 159/74 H Pulse Oximetry 95 Oxygen Delivery Method Medical Decision Making Lab Data 09/15/24 10:35 09/15/24 10:35 Labs: Lab Results 09/15/24 Range/Units 10:35 WBC 10.0 (4.5-11.0) X10^3/uL RBC 4.47 L (4.5-5.9) X10^6/uL Hgb 14.0 (13.5-17.5) g/dL Hct 39.7 L (41-53) % MCV 88.9 (80-100) fL MCH 31.3 (26-34) PG MCHC 35.2 (30-36) % RDW 13.4 (11.6-14.8) % Plt Count 282 (150-400) X10^3/uL Neut % (Auto) 76.1 H (50-75) % Lymph % (Auto) 15.9 L (25-40) % Rankin % (Auto) 7.6 (3-14) % Eos % (Auto) 0.2 L (2-4) % Baso % (Auto) 0.2 (0-2) % Neut # (Auto) 7600 H (9452-2716) /uL Lymph # (Auto) 1600 (8124-2355) /uL Rankin # (Auto) 800 (0-900) /uL Eos # (Auto) 0 (0-450) /uL Baso # (Auto) 0 (0-100) /uL PT 11.3 (9.4-12.5) SECONDS INR 1.0 (0.9-1.3) APTT 35 (25.1-36.5) SECONDS Sodium 137 (137-145) mmol/L Potassium 3.0 L (3.4-5.1) mmol/L Chloride 102 (98-107) mmol/L Carbon Dioxide 23 (22-32) mmol/L BUN 29 H (9-20) mg/dL Creatinine 1.17 (0.66-1.25) mg/dL Estimated GFR > 60 (>60) mL/min BUN/Creatinine Ratio 24.8 H (6-22) Glucose 146 H (80-110) mg/dL Calcium 9.5 (8.4-10.2) mg/dL Magnesium 1.7 (1.6-2.3) mg/dL Total Bilirubin 0.5 (0.2-1.3) mg/dL AST 29 (17-59) IU/L ALT 31 (<50) IU/L Alkaline Phosphatase 84 (38-126) U/L Total Creatine Kinase 70 (55-170) U/L Troponin I < 0.012 (0.01-0.034) ng/mL NT-Pro-B Natriuret Pep 43 (<125) pg/mL Total Protein 7.6 (6.3-8.2) g/dL Albumin 4.6 (3.5-5.0) g/dL Globulin 3.0 (1.7-4.1) g/dL Albumin/Globulin Ratio 1.5 (1.0-2.8) Lipase 82 (23-300) U/L MDM Narrative Medical decision making narrative: CC: Palpitations and dyspnea Complicating co-morbidities: Coronary disease, hypertension hyperlipidemia Data collected from: patient Medical records reviewed: Primary care notes discussing many similar complaints on September 09 is reviewed Differential considered: PACs, PVCs, atrial fibrillation, ventricular tachycardia, acute coronary syndrome, congestive heart failure, pneumothorax, psychosocial distress Exam documented above, pertinent findings include: Exam is entirely benign. Lab Test results independently reviewed as above. Pertinent findings: CBC is unremarkable no significant anemia. Chemistries show hypokalemia at 3.0. Otherwise renal function is appropriate and LFTs are unremarkable Troponin is undetectable Independently reviewed EKG: In talking with the patient and watching telemetry strips he is having fairly frequent PACs with occasional PVCs but underlying rhythm sinus rhythm Formalin EKG shows sinus rhythm at a rate of 88. No acute ischemic changes Imaging studies independently reviewed: Chest x-ray is unremarkable Discussion: Findings reviewed with patient. He notes that after recent discussion with Dr. Sanchez and potassium of 3.3 headache increased his 20 mEq up to 80 mEq and potassium is now down to 3.0. He continues on chlorthalidone which is likely the cause of his potassium loss. We discussed options. I suspect the low potassium is increasing cardiac irritability and he is sensing the increased PVCs that he is having. With shared decision-making, we chose to have him stop his chlorthalidone, continue potassium at 80 mEq for a week decreased to 40 mEq for a week then to 20 mEq. He has a follow up appointment with his primary care physician in a month. He will contact his primary care physician and a blood draw prior to that visit will likely be helpful. He will keep track of blood pressures to see if additional blood pressure medications will need to be added with subtraction of the chlorthalidone. At this point there was no indication for additional imaging or hospitalization and he is safe for discharge Discharge Plan Departure Patient Disposition: Home Clinical Impression: Acute hypokalemia, Frequent PVCs Hypertension Qualifiers: Hypertension type: primary hypertension Qualified Code(s): I10 - Essential (primary) hypertension Instructions: DI for Hypokalemia Activity Restrictions/Additional Instructions: Thank you for coming in today Despite increasing your oral potassium, your potassium level has dropped to 3.0. I suspect this is causing the mild increase in PVCs that you are sensing is palpitations. I am going to suggest that you stop your chlorthalidone. This is likely the source of your potassium loss To replace your potassium, please continue 80 mEq daily for a week, then 40 mEq for a week then back to 20 mEq daily. I would recommend a repeat blood draw before your telemedicine follow up with Dr. Sanchez in about a month. Please keep track of your blood pressures. Stopping when blood pressure medication may mean that we need to add another 1\one. Dr. Sanchez we will need actual information to help you make that decision. If you find that you are getting worse or develop any new symptoms, please feel free to return to the emergency department for further evaluation. Prescriptions: No Action losartan 100 mg tablet 100 mg PO DAILY Qty: 90 3RF gabapentin 300 mg capsule 300 mg PO TID PRN (Reason: pain) Qty: 90 11RF omeprazole 40 mg capsule,delayed release(DR/EC) See Rx Instructions .ROUTE .COMPLEX Qty: 90 3RF Dose Instruction: Take 1 capsule by mouth 30 minutes before morning meal once a day for 90 days Rx Instructions: Take 1 capsule by mouth 30 minutes before morning meal once a day for 90 days atorvastatin 40 mg tablet 40 mg PO QPM Qty: 90 3RF amlodipine 10 mg tablet See Rx Instructions .ROUTE .COMPLEX Qty: 90 3RF Dose Instruction: TAKE ONE TABLET BY MOUTH ONE TIME DAILY Rx Instructions: TAKE ONE TABLET BY MOUTH ONE TIME DAILY chlorthalidone 25 mg tablet 25 mg PO DAILY Qty: 90 3RF potassium chloride 20 mEq tablet,ER particles/crystals 40 meq PO BID Qty: 180 3RF fluoxetine [Prozac] 20 mg capsule 20 mg PO DAILY Qty: 30 11RF aspirin 81 mg Tablet,Delayed Release (Dr/Ec) 81 mg PO DAILY Referrals: Betty Mckeon DO [Primary Care Provider] - Stand Alone Forms: Patient Portal/API/Survey
== END 2024-09-15 15:16 | disposition home or self-care (01) ==
PROVIDERS: Emergency Provider Emergency Medicine; PCP Family Medicine
DX: R00.2 Palpitations (principal); I10 Essential (primary) hypertension; E87.6 Hypokalemia; I49.3 Ventricular premature depolarization
CPT/HCPCS: 36415; 71045; 80053; 82550; 83690; 83735; 83880; 84484; 85025; 85610; 85730; 93005; 99284

== ENCOUNTER → 2024-09-21 13:40 | Outpatient (CLI) | payer MEDICARE, OTHER, SELFPAY ==
[2024-09-21 14:36] LABS: HEMOLYSIS < 15 (0-50); Magnesium 1.7 mg/dL (1.6-2.3); Potassium 3.7 mmol/L (3.4-5.1)
== END ==
PROVIDERS: PCP Family Medicine; Referring Provider Family Medicine; Visit Provider Family Medicine
DX: E87.6 Hypokalemia (principal); I10 Essential (primary) hypertension; F41.9 Anxiety disorder, unspecified
CPT/HCPCS: 36415; 83735; 84132

== ENCOUNTER → 2024-10-24 12:06 | Outpatient (CLI) | payer MEDICARE, OTHER, SELFPAY ==
[2024-10-24 20:37] LABS: BUN Creatinine Ratio 26.5 (6-22); Blood Urea Nitrogen 31 mg/dL (9-20); Calcium 9.6 mg/dL (8.4-10.2); Carbon Dioxide 25 mmol/L (22-32); Chloride 103 mmol/L (98-107); Estimated Glomerular Filt Rate > 60 mL/min (>60); Glucose 101 mg/dL (80-110); HEMOLYSIS < 15 (0-50); Magnesium 1.6 mg/dL (1.6-2.3); Potassium 4.9 mmol/L (3.4-5.1); Sodium 136 mmol/L (137-145)
== END ==
PROVIDERS: PCP Family Medicine; Referring Provider Family Medicine; Visit Provider Family Medicine
DX: E87.6 Hypokalemia (principal); I10 Essential (primary) hypertension
CPT/HCPCS: 36415; 80048; 83735

== ENCOUNTER → 2024-12-19 09:54 | Outpatient (CLI) | payer MEDICARE, OTHER, SELFPAY ==
[2024-12-19 10:58] LABS: BUN Creatinine Ratio 23.3 (6-22); Blood Urea Nitrogen 30 mg/dL (9-20); Calcium 9.5 mg/dL (8.4-10.2); Carbon Dioxide 24 mmol/L (22-32); Chloride 106 mmol/L (98-107); Estimated Glomerular Filt Rate 58 mL/min (>60); Glucose 118 mg/dL (80-110); HEMOLYSIS < 15 (0-50); Potassium 4.7 mmol/L (3.4-5.1); Sodium 138 mmol/L (137-145)
== END ==
PROVIDERS: PCP Family Medicine; Referring Provider Family Medicine; Visit Provider Family Medicine
DX: B02.9 Zoster without complications (principal); E87.6 Hypokalemia
CPT/HCPCS: 36415; 80048

== ENCOUNTER → 2025-02-27 09:09 | Outpatient (CLI) | payer MEDICARE, OTHER, SELFPAY ==
[2025-02-27 10:07] LABS: BUN Creatinine Ratio 18.8 (6-22); Blood Urea Nitrogen 29 mg/dL (9-20); Calcium 9.8 mg/dL (8.4-10.2); Carbon Dioxide 23 mmol/L (22-32); Chloride 104 mmol/L (98-107); Estimated Glomerular Filt Rate 47 mL/min (>60); Glucose 150 mg/dL (80-110); HEMOLYSIS < 15 (0-50); Potassium 4.2 mmol/L (3.4-5.1); Sodium 139 mmol/L (137-145)
[2025-02-27 10:26] LABS: Creatinine Urine Random 99.41 mg/dL
[2025-02-27 10:35] LABS: Microalbumin Urine Random 1.1 mg/dL (0-1.6)
== END ==
PROVIDERS: PCP Family Medicine; Referring Provider Family Medicine; Visit Provider Family Medicine
DX: E87.5 Hyperkalemia (principal); N28.9 Disorder of kidney and ureter, unspecified
CPT/HCPCS: 36415; 80048; 82043; 82570

== ENCOUNTER → 2025-03-02 10:39 | Outpatient (CLI) | payer MEDICARE, OTHER, SELFPAY ==
[2025-03-02 11:29] LABS: Add Manual Diff / Slide Review NO; Basophils Absolute Auto 0 /uL (0-100); Basophils Percent Auto 0.2 % (0-2); Eosinophils Absolute Auto 100 /uL (0-450); Eosinophils Percent Auto 1.1 % (2-4); Hematocrit 40.3 % (41-53); Hemoglobin 13.7 g/dL (13.5-17.5); Lymphocytes Absolute Auto 1200 /uL (1100-4500); Lymphocytes Percent Auto 13.9 % (25-40); Mean Corpuscular Hemoglobin 31.1 PG (26-34); Mean Corpuscular Volume 91.5 fL (80-100); Monocytes Absolute Auto 800 /uL (0-900); Monocytes Percent Auto 9.1 % (3-14); Neutrophils Absolute Auto 6800 /uL (1500-7000); Neutrophils Percent Auto 75.7 % (50-75); Platelet Count 236 X10^3/uL (150-400); Red Blood Cell Count 4.41 X10^6/uL (4.5-5.9); Red Cell Distribution Width 12.8 % (11.6-14.8)
[2025-03-02 11:39] LABS: Hemoglobin A1C% w Est Avg Glu 5.3 % (4.0-6.0)
[2025-03-02 12:13] LABS: Alanine Aminotransferase 35 IU/L (<50); Albumin 4.6 g/dL (3.5-5.0); Albumin Globulin Ratio 1.8 (1.0-2.8); Alkaline Phosphatase 86 U/L (38-126); Aspartate Aminotransferase 27 IU/L (17-59); Bilirubin Total 0.6 mg/dL (0.2-1.3); Bilirubin Unconjugated 0.3 mg/dL (0.0-1.1); Globulin 2.5 g/dL (1.7-4.1); HEMOLYSIS < 15 (0-50); Lipase 87 U/L (23-300); Magnesium 1.8 mg/dL (1.6-2.3); Total Protein 7.1 g/dL (6.3-8.2)
[2025-03-02 12:48] LABS: Ferritin 224 ng/mL (18-464)
[2025-03-02 13:02] LABS: Vitamin B12 575 pg/mL (239-931)
== END ==
PROVIDERS: PCP Family Medicine; Referring Provider Family Medicine; Visit Provider Family Medicine
DX: E87.6 Hypokalemia (principal); R73.01 Impaired fasting glucose; R10.13 Epigastric pain; R19.5 Other fecal abnormalities; R25.2 Cramp and spasm; R29.898 Other symptoms and signs involving the musculoskeletal system
CPT/HCPCS: 36415; 80076; 82607; 82728; 83036; 83690; 83735; 85025

== ENCOUNTER → 2025-03-14 06:42 | Outpatient (CLI) | payer MEDICARE, OTHER, SELFPAY ==
--- NOTE | 2025-03-14 06:43 | DI.US.S_ITS ---
PROCEDURE: US ABDOMEN COMPLETE INDICATIONS: POST-PRANDIAL PAIN; NEW CKD TECHNIQUE: Real-time scanning was performed of the abdominal and retroperitoneal organs, with image documentation. COMPARISON: CT, CT ABDOMEN WO/W CON, 05/11/2019, 10:30. [facility], US, US ABDOMEN COMPLETE, 05/05/2019, 7:40. FINDINGS: Liver: Liver is normal in size and homogeneous in echotexture. Gallbladder: No stones. Wall thickness is normal measuring 1.9 mm. Biliary ducts: Intrahepatic bile ducts are non-dilated. Extrahepatic bile duct caliber measures 5.3 mm. Normal is 6-7 mm or less in diameter, or 10 mm or less post-cholecystectomy. Pancreas: Visualized portions of the pancreas are sonographically normal. Spleen: Spleen is normal in size and homogeneous in echotexture. Kidneys: Kidneys are normal in size and echotexture. Right kidney measures 11.8 cm long; left kidney measures 11.5 cm long. No hydronephrosis or nephrolithiasis. No solid masses. Simple left renal cyst. Aorta: Visualized aorta is normal in caliber at less than 3 cm. Iliacs: Proximal common iliac arteries are normal in caliber at less than 2.5 cm. IVC: Intrahepatic inferior vena cava is patent. Miscellaneous: No free abdominal fluid. IMPRESSION: Unremarkable exam. Dictated by: Leah Jackson M.D. on 03/14/2025 at 9:12 Approved by: Leah Jackson M.D. on 03/14/2025 at 9:13
== END ==
LOC: US 06:43
PROVIDERS: PCP Family Medicine; Referring Provider Family Medicine; Visit Provider Family Medicine
DX: N18.30 Chronic kidney disease, stage 3 unspecified (principal); R10.13 Epigastric pain; N28.1 Cyst of kidney, acquired
CPT/HCPCS: 76700

== ENCOUNTER 2025-04-12 12:44 | Day surgery (SDC) | payer MEDICARE, OTHER, SELFPAY ==
--- NOTE | 2025-04-12 | PATH_ITS ---
[facility] Accession Number: [id number] No. of containers..01 Tissue . 01 Material submitted: . GASTRIC - GASTRIC BX . 01 Clinical history: . R/O H-PYLORI . 01 Diagnosis: GASTRIC BX: Gastric mucosa with mild chronic inflammation. No Helicobacter organisms identified. No intestinal metaplasia, dysplasia, or malignancy identified. [facility] 04/20/2025 1252 Local . 01 Electronically signed: . Jama Monzon MD, Pathologist NPI- [id number] . 01 Gross description: . Received in formalin with no identifiers (authorization form received) and no site on jar, is a single peck soft tissue fragment 0.5 cm in greatest dimension. Submitted in cassette A1. ([id number]) /RANDA 04/20/2025 1252 Local . 01 Microscopic: . GASTRIC BX: An immunohistochemical stain was performed to evaluate for Helicobacter organisms and is negative. The control stains appropriately. * This test was developed and the performance characteristics were validated by [facility]. It has not been cleared or approved by the Food and Drug Administration. . 01 Pathologist provided ICD-10: K29.50 . 01 CPT . 810567, Q45062 Specimen Comment: A courtesy copy of this report has been sent to [phone] Performed at: [address] [address], [place], [place] [id number] MD Jama Monzon MD Phone: [phone]
[2025-04-12 13:33] VITALS: BP 125/69; PULSE 58; RESP 16; TEMP 36.2; O2SAT 91
[2025-04-12] MEDS: LACTATED RINGERS 1,000 ML 42 ML IV (13:46)
--- NOTE | 2025-04-12 13:46 | P.HP_ITS ---
History of Present Illness History of Present Illness Date Patient Seen: 04/12/25 Chief complaint: SDC Narrative: Unresolved epigastric pain [facility] Medical History CKD (chronic kidney disease) stage 3, GFR 30-59 ml/min BENTLEY (generalized anxiety disorder) Encounter for subsequent annual wellness visit (AWV) in Medicare patient Chronic low back pain Hyperlipidemia STEMI (ST elevation myocardial infarction) Surgical History History of prostatectomy H/O angioplasty Family History Father Age: 99 Heart disease High cholesterol Mental health problem Stroke Mother Age: 96 Heart disease Hypertension High cholesterol Brother Cancer Sister Cancer Social History marital status: household members: spouse lives independently: Yes occupational status: previously employed Smoking Status: Former smoker alcohol intake: former substance use type: does not use Meds Home Medications and Allergies Home Medications Medication Instructions Recorded Confirmed Type aspirin 81 mg tablet,delayed 81 mg PO DAILY 04/05/19 04/12/25 History release atorvastatin 40 mg tablet 40 mg PO QPM #90 tabs 08/18/24 04/12/25 Rx gabapentin 300 mg capsule 300 mg PO TID PRN pain #90 caps 08/18/24 04/12/25 Rx losartan 100 mg tablet 100 mg PO DAILY blood pressure #90 08/18/24 04/12/25 Rx tabs hydroxyzine HCl 10 mg tablet 10 - 20 mg (1 - 2 x 10 mg) PO 09/20/24 04/12/25 Rx Q6-8H PRN anxiety #60 tabs potassium chloride 20 mEq 40 meq (2 x 20 mEq) PO BID #180 01/25/25 03/24/25 Rx tablet,extended release(part/cryst) tabs spironolactone 25 mg tablet 12.5 mg PO DAILY 03/02/25 04/12/25 History amlodipine 10 mg tablet 10 mg PO DAILY 04/12/25 04/12/25 History omeprazole 40 mg capsule,delayed 20 mg PO DAILY 04/12/25 04/12/25 History release Allergies Allergy/AdvReac Type Severity Reaction Status Date / Time shellfish derived Allergy Severe Anaphylaxis Verified 03/24/25 09:35 [SHELLFISH DERIVED] grass pollen Allergy Mild Sneezing Verified 03/24/25 09:35 house dust mite Allergy Mild Sneezing Verified 03/24/25 09:35 mold Allergy Mild Sneezing Verified 03/24/25 09:35 Exam Vital Signs (past 8 hours): - 04/12/25 13:33 Temperature 97.1 F L Pulse Rate 58 L Respiratory Rate 16 Blood Pressure 125/69 Pulse Oximetry 91 Oxygen Delivery Method Room Air Oxygen Delivery Method Room Air Narrative Exam Narrative: Oropharynx free of lesions Chest clear to auscultation percussion Cardiac exam reveals no S3 or murmur Assessment & Plan Assessment & Plan narrative: Unresolved epigastric pain need for EGD to rule out underlying peptic disease. Risks, benefits, alternatives have been explained. Time-Based Coding :: [TOTAL MINUTES] spent with patient and on the chart (including review of chart, obtaining history, exam, reviewing outside data, placing orders, documenting exam and treatment plan, and counseling patient) on [DATE]. PROFEE Underwriting Clerk Document charge(s): No
--- NOTE | 2025-04-12 13:48 | P.OP.EGD_ITS ---
Operative Date/Time/Diagnoses Date of procedure: 04/12/25 Time of procedure: 14:29 Pre-op diagnosis: See indication and findings Post-op diagnosis: same Procedure & Clinicians Study performed: EGD Same procedure as scheduled: Yes Indications: Unresolved epigastric pain Surgeon: Mary Mendoza Procedure Notes Procedure in detail: After informed consent was obtained the patient was placed in left lateral decubitus position. The video upper scope was placed into the oropharynx and with the patient's help swallowed into the esophagus. The esophagus stomach and duodenal were carefully examined. On withdrawal retroflexed view the GE juncti on was performed. The scope was removed. The patient tolerated the procedure well. Blood loss none Complications none Sedation mac Findings 1. Normal esophagus 2. Striped gastric antrum, biopsies taken to rule out Helicobacter 3. Normal duodenal bulb and sweep Patient will remain on current medications will be in touch regarding biopsies
[2025-04-12 14:33] VITALS: BP 107/64; PULSE 58; RESP 12; TEMP 36.3; O2SAT 93
[2025-04-12 14:38] VITALS: BP 107/63; PULSE 59; RESP 12; O2SAT 93
[2025-04-12 14:44] VITALS: BP 108/66; PULSE 57; RESP 16; TEMP 36.2; O2SAT 94
== END 2025-04-12 14:51 | disposition home or self-care (01) ==
PROVIDERS: PCP Family Medicine; Referring Provider Internal Medicine Gastroenterology; Visit Provider Internal Medicine Gastroenterology
PROC: 0DJ08ZZ Inspection of Upper Intestinal Tract, Via Natural or Artificial Opening Endoscopic (ICD-10-PCS; CPT 43239; principal; 2025-04-12 14:00)
DX: R10.13 Epigastric pain (principal); K29.50 Unspecified chronic gastritis without bleeding
CPT/HCPCS: 43239; J2704; J3010

== ENCOUNTER → 2025-04-14 11:13 | Outpatient (CLI) | payer MEDICARE, OTHER, SELFPAY ==
[2025-04-14 11:44] LABS: Hemoglobin 12.4 g/dL (13.5-17.5)
[2025-04-14 12:19] LABS: BUN Creatinine Ratio 14.2 (6-22); Blood Urea Nitrogen 19 mg/dL (9-20); Carbon Dioxide 25 mmol/L (22-32); Chloride 105 mmol/L (98-107); Estimated Glomerular Filt Rate 56 mL/min (>60); Glucose 113 mg/dL (70-99); HEMOLYSIS < 15 (0-50); Potassium 4.2 mmol/L (3.4-5.1); Sodium 137 mmol/L (137-145)
[2025-04-14 14:37] LABS: Creatinine Urine Random 116.34 mg/dL
[2025-04-14 14:38] LABS: Protein (Total) Urine Random < 5 mg/dL (0-12); Protein Creatinine Ratio Urine 0.04 GRAM/24H
== END ==
PROVIDERS: PCP Family Medicine; Referring Provider Student in an Organized Health Care Education/Training Program; Visit Provider Student in an Organized Health Care Education/Training Program
DX: N05.9 Unspecified nephritic syndrome with unspecified morphologic changes (principal); D64.9 Anemia, unspecified; R80.9 Proteinuria, unspecified
CPT/HCPCS: 36415; 80048; 82570; 84156; 85014; 85018

== ENCOUNTER → 2025-04-25 09:47 | Outpatient (CLI) | payer MEDICARE, OTHER, SELFPAY ==
[2025-04-25 11:27] LABS: Ferritin 203 ng/mL (18-464)
[2025-04-26 06:05] LABS: PSA Ultrasensitive <0.006 ng/mL (0.000-4.000)
== END ==
PROVIDERS: PCP Family Medicine; Referring Provider Family Medicine; Visit Provider Family Medicine
DX: C61 Malignant neoplasm of prostate (principal); G25.81 Restless legs syndrome
CPT/HCPCS: 36415; 82728; 84153

== ENCOUNTER → 2025-04-26 18:35 | Outpatient (CLI) | payer MEDICARE, OTHER, SELFPAY ==
--- NOTE | 2025-04-26 18:40 | DI.MRI.S_ITS ---
PROCEDURE: MR LUMBAR SPINE WO CON INDICATIONS: LBP with rt radiculopathy TECHNIQUE: Noncontrast sagittal T1 spin echo and T2 fast echo, sagittal STIR, and T2 fast spin echo through the lumbar spine. In cases with scoliosis, additional coronal T2 fast spin echo may be performed. COMPARISON: [facility], MR, MR LUMBAR SPINE WO CON, 06/10/2021, 14:37. FINDINGS: Image quality: Excellent. Alignment and Curvature: There is normal bony alignment. Bone Marrow: Vertebral body height is maintained. There are scattered Schmorl's nodes throughout the inflates most pronounced at the L3 level. Minimal anterolisthesis of L3 on L4. There are fatty marrow conversion changes. Scattered T2 hyperintense hemangiomas. Spinal Cord: Conus medullaris terminates at the L1 level. Visualized cord demonstrates normal signal and size. Paraspinous Soft Tissues: No paravertebral masses. The combination of disc bulging with endplate spurring, ligamentum flavum hypertrophy and facet arthropathy results in the following: T12-L1: Normal appearance. L1-L2: Normal appearance. L2-L3: Shallow disc bulge without stenosis. L3-L4: Severe central canal stenosis with severe right and moderate left foraminal stenosis. L4-L5: Severe central canal stenosis with moderate bilateral foraminal stenosis. L5-S1: Normal appearance. IMPRESSION: Lower lumbar spondylosis most pronounced centrally at the L3-L4 and L4-L5 levels with mild grade 1 anterolisthesis of L3 on L4 and with mild progression from prior imaging in 2020. Dictated by: Honey Ríos M.D. on 04/27/2025 at 11:37 Approved by: Honey Ríos M.D. on 04/27/2025 at 11:47
== END ==
LOC: MRI 18:37
PROVIDERS: PCP Family Medicine; Referring Provider Family Medicine; Visit Provider Family Medicine
DX: M47.26 Other spondylosis with radiculopathy, lumbar region (principal); M43.16 Spondylolisthesis, lumbar region; M48.061 Spinal stenosis, lumbar region without neurogenic claudication; M54.41 Lumbago with sciatica, right side; M54.42 Lumbago with sciatica, left side; G25.81 Restless legs syndrome; G89.29 Other chronic pain
CPT/HCPCS: 72148

== ENCOUNTER → 2025-08-10 09:15 | Outpatient (CLI) | payer MEDICARE, OTHER, SELFPAY ==
--- NOTE | 2025-08-10 09:16 | DI.MG.S_ITS ---
MM diagnostic mammo BI: 08/10/2025. BI-RADS: 2 CLINICAL: 74-year old male for bilateral diagnostic mammogram. No personal or first-degree family history of breast cancer. The patient reports subareolar pain (3 months) in the right breast. The patient is on spironolactone. PRIOR EXAMS: No prior examinations available. MAMMOGRAPHY TECHNIQUE: 2D and 3D (tomosynthesis) digital mammographic views obtained, with additional images as needed for full coverage. Current study was also evaluated with a Computer Aided Detection (CAD) system. DENSITY A. The breasts are almost entirely fatty. MAMMOGRAPHY FINDINGS Right: Central, Retroareolar, Far Anterior depth: Correlating with pain/tenderness, there is an asymmetry consistent with gynecomastia. There is moderate dendritic pattern gynecomastia. Left: No suspicious mass, asymmetry, microcalcification, or other abnormality seen. IMPRESSION: Right * No evidence of malignancy with benign findings. Left * No evidence of malignancy. RECOMMENDATIONS Right * Clinical follow up is recommended for the patient's pain and also for the patient's gynecomastia, with evaluation for etiologies including medication/drug-related factors, hormonal or systemic disorders. COMMENTS: Findings and recommendations were conveyed to the patient during today's evaluation. OVERALL ASSESSMENT CATEGORY BI-RADS-2: Benign. ELECTRONICALLY SIGNED: Jolanta Howe M.D. on 08/10/2025 at 10:11:31 AM PT Interpreting Station ID: [id number]
== END ==
PROVIDERS: PCP Family Medicine; Referring Provider Family Medicine; Visit Provider Family Medicine
DX: N64.4 Mastodynia (principal); R92.313 Mammographic fatty tissue density, bilateral breasts
CPT/HCPCS: 77066; G0279

== ENCOUNTER → 2025-09-14 07:01 | Outpatient (CLI) | payer MEDICARE, OTHER, SELFPAY ==
[2025-09-14 08:39] LABS: Alanine Aminotransferase 36 IU/L (<50); Albumin 4.3 g/dL (3.5-5.0); Albumin Globulin Ratio 1.6 (1.0-2.8); Alkaline Phosphatase 92 U/L (38-126); Blood Urea Nitrogen 24 mg/dL (9-20); Calcium 9.5 mg/dL (8.4-10.2); Carbon Dioxide 24 mmol/L (22-32); Chloride 106 mmol/L (98-107); Cholesterol 135 mg/dL (140-199); Estimated Glomerular Filt Rate 58 mL/min (>60); Globulin 2.7 g/dL (1.7-4.1); Glucose 99 mg/dL (70-99); HDL Cholesterol 45 mg/dL (40-60); HEMOLYSIS < 15 (0-50); Potassium 4.7 mmol/L (3.4-5.1); Sodium 139 mmol/L (137-145); Total Protein 7.0 g/dL (6.3-8.2); Triglycerides 169 mg/dL (35-150)
== END ==
PROVIDERS: PCP Family Medicine; Referring Provider Internal Medicine Cardiovascular Disease; Visit Provider Internal Medicine Cardiovascular Disease
DX: I25.10 Atherosclerotic heart disease of native coronary artery without angina pectoris (principal); I47.10 Supraventricular tachycardia, unspecified; I49.3 Ventricular premature depolarization
CPT/HCPCS: 36415; 80053; 80061

== ENCOUNTER → 2025-10-20 08:04 | Outpatient (CLI) | payer MEDICARE, OTHER, SELFPAY ==
[2025-10-20 08:35] LABS: Hematocrit 36.7 % (41-53); Hemoglobin 12.6 g/dL (13.5-17.5)
[2025-10-20 09:16] LABS: Protein (Total) Urine Random < 5 mg/dL (0-12); Protein Creatinine Ratio Urine 0.02 GRAM/24H
[2025-10-20 09:21] LABS: Blood Urea Nitrogen 20 mg/dL (9-20); Calcium 9.2 mg/dL (8.4-10.2); Carbon Dioxide 24 mmol/L (22-32); Chloride 107 mmol/L (98-107); Estimated Glomerular Filt Rate > 60 mL/min (>60); Glucose 100 mg/dL (70-99); HEMOLYSIS < 15 (0-50); Potassium 4.5 mmol/L (3.4-5.1); Sodium 138 mmol/L (137-145)
== END ==
PROVIDERS: PCP Family Medicine; Referring Provider Family Medicine; Visit Provider Student in an Organized Health Care Education/Training Program
DX: D70.9 Neutropenia, unspecified (principal); D63.1 Anemia in chronic kidney disease; N05.9 Unspecified nephritic syndrome with unspecified morphologic changes; N25.81 Secondary hyperparathyroidism of renal origin; R80.9 Proteinuria, unspecified
CPT/HCPCS: 36415; 80048; 82570; 83970; 84156; 85014; 85018